=== PATIENT | male | born 1975 | race Caucasian/White ===

== ENCOUNTER 2017-03-10 06:16 | Inpatient (IN) | payer MEDICARE, OTHER ==
[~2017-03-10] VITALS: Ht 160 cm; Wt 93.0 kg
[2017-03-10] VITALS (24 sets, daily range): BP systolic 85–146; BP diastolic 65–114; PULSE 78–120; RESP 10–30; TEMP 97.1; Ht 160 cm; Wt 93.0 kg
[2017-03-10] MEDS ORDERED: SODIUM CHLORIDE 0.9% 1L BAG IV* STA (06:20)
[2017-03-10] MEDS ORDERED: NORepinephrine 8MG/250 ML (PMX 250 ML IV STA (06:20)
[2017-03-10] MEDS ORDERED: CEFEPIME 2GM/50 ML (PMX) 50 ML IVPB STA (06:20)
[2017-03-10] MEDS ORDERED: VANCOMYCIN 1 GM (PMX) 250 ML IVPB ONE (06:30)
--- NOTE | 2017-03-10 07:08 | ERD ---
ER Documentation Chief Complaint Chief Complaint Hypotension from [place] HPI This is a 41-year-old male with a history of spinal cord injury, paraplegia, chronic respiratory failure with recent trach who presents with hypotension. It appears that at [place] the patient became hypotensive and was in the 60s systolic. The patient had received 2 L of saline prior to arrival and still remained in the 70s. No reported fever but only temporal temperature checked. No reported melena or hemoptysis. No significant shortness of breath, the patient is ventilator dependent. He is slightly more confused per nursing staff today. The patient is nonverbal upon arrival therefore remainder of HPI is very limited. ROS Nonverbal, critically ill Medications Home Meds Reported Medications Trazodone Hcl* (Trazodone Hcl*) 50 Mg Tablet, 50 MG PO QHS, #30 TAB 03/10/17 Lorazepam* (Lorazepam*) 0.5 Mg Tablet, 0.5 MG PO HS Y for ANXIETY, TAB 03/10/17 Midodrine* (Midodrine*) 5 Mg Tablet, 5 MG PO DAILY, TAB 03/10/17 Pravastatin Sodium* (Pravastatin Sodium*) 10 Mg Tablet, 10 MG PO HS, TAB 03/10/17 Ranitidine Hcl* (Ranitidine Hcl*) 150 Mg Tablet, 150 MG PO HS, #30 TAB 03/10/17 Escitalopram Oxalate* (Lexapro*) 5 Mg Tablet, 5 MG PO DAILY, #30 TAB 03/10/17 Aspirin* (Aspirin* Chew) 81 Mg Tab.chew, 81 MG PO DAILY, TAB.CHEW 03/10/17 Baclofen* (Baclofen*) 10 Mg Tablet, 10 MG PO TID, TAB 03/10/17 Gabapentin* (Gabapentin*) 300 Mg Capsule, 300 MG PO TID, #90 CAP 03/10/17 Allergies Allergies: Coded Allergies: No Known Allergy (Unverified , 03/04/17) PMhx/Soc As noted in HPI FmHx Family History: No diabetes Physical Exam Vitals Vital Signs Date Time Temp Pulse Resp B/P Pulse Ox O2 Delivery O2 Flow Rate FiO2 03/10/17 10:30 95.8 97 18 98/74 100 Mechanical Ventilator 03/10/17 10:15 95.8 96 16 112/52 100 Mechanical Ventilator 03/10/17 10:00 96.1 94 18 114/89 100 Mechanical Ventilator 03/10/17 09:45 96.0 93 16 107/95 94 Mechanical Ventilator 03/10/17 09:30 96.0 92 18 130/93 90 Mechanical Ventilator 03/10/17 09:15 95.7 98 14 128/82 100 Mechanical Ventilator 03/10/17 09:15 99 21 100 75 03/10/17 09:00 95.1 97 16 101/60 100 Mechanical Ventilator 03/10/17 08:45 95.1 95 14 118/74 100 Mechanical Ventilator 03/10/17 08:30 94.5 95 12 121/77 100 Mechanical Ventilator 03/10/17 08:15 94.5 96 14 85/62 100 Mechanical Ventilator 03/10/17 08:00 94.5 93 14 77/60 100 Mechanical Ventilator 03/10/17 07:45 94.5 92 18 114/91 100 Mechanical Ventilator 03/10/17 07:30 94.3 82 16 78/47 100 Mechanical Ventilator 03/10/17 07:15 98 21 100 40 03/10/17 07:00 94.3 66 14 81/61 100 Mechanical Ventilator 03/10/17 06:45 94.3 85 18 76/46 100 Mechanical Ventilator 03/10/17 06:27 71 16 82/51 100 03/10/17 06:20 71 10 100 40 Physical Exam General: No significant distress Head: Normocephalic, atraumatic. Eyes: Pupils equally reactive, EOM intact ENT: Moist mucous membranes Neck: Supple, no lymphadenopathy tracheostomy in good position Respiratory: Rhonchi bilaterally, ventilator sounds Cardiovascular: RRR, no murmurs, rubs, or gallops Abdominal: Soft, non-tender, non-distended, no peritoneal signs, G-tube in position : No melena MSK: Limited movement of all 4 extremities, no bony abnormalities Neurologic: Limited exam, and encephalopathic, limited movement of all 4 extremities Skin: No rash, no significant breakdown Psych: Unable to assess Result Diagram: 03/10/1750 03/10/17 0650 Results 24 hrs Laboratory Tests Test 03/10/17 06:50 03/10/17 09:00 White Blood Count 15.310^3/ul Red Blood Count 3.4310^6/ul Hemoglobin 9.4g/dl Hematocrit 30.6% Mean Corpuscular Volume 89.2fl Mean Corpuscular Hemoglobin 27.4pg Mean Corpuscular Hemoglobin Concent 30.7g/dl Red Cell Distribution Width 15.1% Platelet Count 83426^3/UL Mean Platelet Volume 9.9fl Neutrophils % 78.9% Lymphocytes % 12.0% Monocytes % 7.0% Eosinophils % 0.4% Basophils % 0.3% Nucleated Red Blood Cells % 0.0/100WBC Neutrophils # 12.110^3/ul Lymphocytes # 1.810^3/ul Monocytes # 1.110^3/ul Eosinophils # 0.110^3/ul Basophils # 0.010^3/ul Nucleated Red Blood Cells # 0.010^3/ul Prothrombin Time 21.4Sec Prothrombin Time Ratio 1.7 INR International Normalized Ratio 1.84 Activated Partial Thromboplast Time 49.8Sec Urine Color YELLOW Urine Clarity CLOUDY Urine pH 5.0 Urine Specific Bass[place] 1.005 Urine Ketones NEGATIVEmg/dL Urine Nitrite NEGATIVEmg/dL Urine Bilirubin NEGATIVEmg/dL Urine Urobilinogen NEGATIVEmg/dL Urine Leukocyte Esterase 2+Roxanna/ul Urine Microscopic RBC 14/HPF Urine Microscopic WBC 62/HPF Urine Granular Casts FEW/HPF Urine Mucus FEW/HPF Urine Hemoglobin 3+mg/dL Urine Glucose NEGATIVEmg/dL Urine Total Protein 1+mg/dl Sodium Level 147mmol/L Potassium Level 4.0mmol/L Chloride Level 121mmol/L Carbon Dioxide Level 19mmol/L Anion Gap 11 Blood Urea Nitrogen 14mg/dl Creatinine 1.13mg/dl Glucose Level 92mg/dl Lactic Acid Level 0.7mmol/L 0.8mmol/L Calcium Level 7.8mg/dl Total Bilirubin 0.2mg/dl Direct Bilirubin 0.00mg/dl Indirect Bilirubin 0.2mg/dl Aspartate Amino Transf (AST/SGOT) 13IU/L Alanine Aminotransferase (ALT/SGPT) 24IU/L Alkaline Phosphatase 142IU/L Troponin I < 0.012ng/ml Total Protein 5.7g/dl Albumin 2.3g/dl Globulin 3.40g/dl Albumin/Globulin Ratio 0.67 Current Medications Medications (Trade) Dose Ordered Sig/Sera Route PRN Reason Start Time Stop Time Status Last Admin Dose Admin Sodium Chloride 2900 ml 2,900 ml BOLUS OVER 2 HOURS STAT IV* 03/10/17 06:20 03/10/17 06:23 DC 03/10/17 07:15 Norepinephrine 250 ml @ 7.5 mls/hr ONCE STAT IV 03/10/17 06:20 03/11/17 15:39 03/10/17 07:32 Cefepime HCl 50 ml @ 100 mls/hr ONCE STAT IVPB 03/10/17 06:20 03/10/17 06:49 DC 03/10/17 07:33 Vancomycin HCl (Vancocin) 250 ml @ 125 mls/hr ONCE ONCE IVPB 03/10/17 06:30 03/10/17 08:29 DC 03/10/17 08:08 Vancomycin HCl (Vancomycin Oral Syringe) 250 mg ONCE ONCE GTB 03/10/17 09:00 03/10/17 09:01 DC IV Flush 10 ml 10 ml STK-MED ONCE .ROUTE 03/10/17 09:39 03/10/17 09:40 DC Sodium Chloride (NS) 100 ml @ ud STK-MED ONCE .ROUTE 03/10/17 09:39 03/10/17 09:40 DC Iodixanol (Visipaque Locm) 100 ml STK-MED ONCE .ROUTE 03/10/17 09:39 03/10/17 09:40 DC Iodixanol (Visipaque Locm) 50 ml STK-MED ONCE .ROUTE 03/10/17 09:39 03/10/17 09:40 DC IV Flush (NS 3 ml) 3 ml PER PROTOCOL IV 03/10/17 11:30 UNV Ondansetron HCl (Zofran Inj) 4 mg Q6H PRN IV NAUSEA AND/OR VOMITING 03/10/17 11:30 UNV Albuterol (Proventil 0.083% (Neb)) 2.5 mg Q2H RESP THERAPY PRN NEB SHORTNESS OF BREATH 03/10/17 11:30 UNV Ipratropium [place] (Atrovent 0.02% (Neb)) 0.5 mg Q2H RESP THERAPY PRN NEB SHORTNESS OF BREATH 03/10/17 11:30 UNV Acetaminophen (Tylenol Liquid) 650 mg Q6H PRN PO PAIN LEVEL 1-3 OR FEVER 03/10/17 11:30 UNV Morphine Sulfate (morphine) 2 mg Q4H PRN IV PAIN LEVEL 7-10 03/10/17 11:30 UNV Famotidine (Pepcid Iv) 20 mg Q12 IV 03/10/17 21:00 UNV Procedures/MDM EKG, MONITORS, & DIAGNOSTIC IMAGING: EKG: I reviewed and interpreted a 12-lead EKG. Rhythm: Normal sinus rhythm Ectopy: None Intervals: No abnormalities ST segments: No elevations or depressions T waves: No contiguous inversions Chest x-ray: I reviewed and interpreted a 1 view of the chest Mediastinum: No enlargement Cardiac silhouette: No cardiomegaly Airspace: Interstitial process bilaterally, no pneumothorax Triple-lumen catheter in good position within the SVC Bones: No evidence of fracture CT PA: IMPRESSION: There are emboli in peripheral branches of the pulmonary artery to the left lower lobe. There is consolidation with air bronchograms involving nearly the entire left lung which is likely due to an infiltrate/pneumonia given its diffuse involvement of the left lung although pulmonary infarction in the left lower lobe cannot be excluded given the presence of adjacent PE. Tracheostomy . Enteric tube in the stomach. Mild cardiomegaly with mild pulmonary vascular congestion. Right-sided pacemaker. These critical findings were discussed with Tan Cardenas over the phone on 03/10/2017 at 10:58 AM. RPTAT: EE CT A/p: IMPRESSION: 1. There is mild bilateral pelvocaliectasis and mild dilatation of the proximal ureters with no nephrolith or ureterolith identified. A Disla catheter is seen within a poorly distended bladder with a small amount of intraluminal are not with the bladder wall appearing mildly thickened. 2. An NG tube is 7 with the tip in the stomach. There is no evidence of bowel obstruction or inflammation. The vermiform appendix is not identified. 3. There is a trace amount of free intraperitoneal fluid seen in the paracolic gutters bilaterally but no free air is evident. There is a very small fat containing left inguinal hernia. 4. Mild hepatomegaly with no focal lesion. 5. Atelectasis and consolidation involving the left lower lobe. 6. Mild cardiomegaly with pacemaker artifact evident. PROCEDURES: Central Line Note: Consent: Unable to obtain given no family present, patient nonverbal, critically ill Indication: Critically ill patient requiring specialized vascular access for fluid or pressor management Location: Right IJ Procedure: Sterile procedure was observed throughout insertion of the central line. The insertion site was prepped with sterile solution. Ultrasound-guided identification of the vein was performed. Insertion of a needle into the vein was obtained with return of dark, nonpulsatile blood. The wire was then threaded through the needle without complication. The wire was then identified within the vein using ultrasound. A small skin incision was made, the needle was removed intact, dilation of the vein was performed and insertion of a triple lumen catheter was completed. The catheter was then sutured to the skin. All 3 ports tomas back and flushed without difficulty. A sterile dressing was applied. The patient tolerated the procedure well there were no complications. Emergency Bedside Ultrasound: The patient was verbally consented prior to procedure and understands the risks , benefits, and alternatives. The patient is agreeable to procedure and has given verbal consent. Indication: Central line Probe Type: Linear Findings: Dynamic ultrasound utilizing compressive technique with both linear and horizontal views, additional images showing wire within the venous system were obtained. The patient tolerated the procedure well and there were no complications. A post-line chest x-ray was ordered as indicated. LAB INTERPRETATION: Leukocytosis of 15.3, anemia slightly below baseline of 10-1/2, normal lactic acid, negative troponin MEDICAL DECISION MAKING: The patient presents from [facility] with hypotension despite fluid resuscitation. His hypotension has a very broad differential but given his chronic respiratory failure, this is most likely consistent with early sepsis. No signs or symptoms concerning for cardiogenic shock or GI bleed. Consider spinal process given his paraplegia. The patient has already been given 2 L of saline upon arrival. However, given that this is a new ER visit initiation of sepsis protocol was restarted in the emergency department. But because of this I believe earlier pressor intervention is necessary as the patient has shown that he is not responsive to fluids at this time. Based on ultrasound imaging during central line he still does appear volume down. I will simultaneously continue a 30 cc/kg bolus of saline in the emergency department but initiate levo given persistent hypotension and mean arterial pressure less than 65. Blood cultures will be taken and the patient will be given vancomycin and cefepime. No signs or symptoms concerning for meningitis that would warrant lumbar puncture. Abdomen is soft with low concern of acute intra-abdominal process or aortic process. ER COURSE: Upon arrival the patient was assessed and was identified to require pressor support. A triple-lumen catheter was placed as documented above. The patient will be continued on his ventilator support. Laboratory testing was initiated. The patient continued to be hypotensive despite pressor support and IV fluids. He had a transient episode of hypoxia. Given that the hemoglobin had dropped there was some concern for possible hemorrhage therefore CT of the abdomen and pelvis was ordered. No melena on exam. The patient also had a hypoxic event prompting CTA of the chest to rule out pulmonary embolism. Interestingly enough the patient CT of the chest shows evidence of significant left-sided pneumonia. There is a very small subsegmental pulmonary embolism. Based on the conversation with the radiologist this appears to be incidental in nature. He does not describe any significant findings of right heart strain, he feels that this is unlikely to the be the patient's inciting event. I agree given that the patient has no evidence of cardiac strain on diagnostic imaging, EKG, troponin I believe that this small pulmonary embolism is not clinically significant. Additionally, the patient already has evidence of borderline INR elevation and recently had a placement of a triple-lumen catheter. In my opinion at this point given the unclear significance of the pulmonary embolism and clear risks for anticoagulation I would like to avoid anticoagulation in the emergency room setting. Inpatient hospitalization may warrant different treatment if the patient clinically changes. I believe that the patient's persistent hypotension is consistent with septic shock given hypothermia and leukocytosis with clear pneumonia on CT imaging. Patient was found to be hypothermic and started on a bear hugger. I kept the patient and/or family informed of laboratory and diagnostic imaging results throughout the emergency room course. DISPOSITION PLAN: Intensive care unit CONSULTATION: Accepting care team and consultations: I discussed the current laboratory data, diagnostic imaging and emergency care provided. Admitting team: Dr. Bailey Admitting team indication: Insurance directed Sepsis Documentation: Patient's infectious symptoms have not stabilized and the patient is at risk of rapid decompensation. The patient will be admitted for careful hydration, antibiotic therapy, and infectious source control. SEVERE SEPSIS CRITERIA: Infectious source: Healthcare associated pneumonia End organ damage indicated by: Hypotension (SBP < 90 or >40 mmHG drop or MAP < 65) SEPSIS MANAGEMENT Time of recognition of severe sepsis/septic shock: Upon arrival 3 HOUR BUNDLE Blood cultures x 2 before broad-spectrum antibiotics: Yes 30 ml/kg NS bolus Completed Initial lactate less than 2 Repeat lactate less than 2 SEPTIC SHOCK ASSESSMENT: No lactic acid > 4.0 Yes persistent hypotension (SBP < 90 or 40 mmHg drop, MAP < 65) despite 30 mL/ kg IV fluid bolus VOLUME REASSESSMENT FOR SEPTIC SHOCK: Reevaluation Time: 11:35 AM Temperature of 95.8 heart rate of 97 respiratory rate 18 blood pressure 98/74 pulse ox 100% on ventilator Heart Regular rate & rhythm Lungs rhonchi bilaterally Skin Warm & dry Cap Refill Less than 2 seconds Peripheral pulses Radially present PERSISTENT HYPOTENSION TREATMENT: Comfort care No Central line placed Vasopressor started levo I considered further perfusion assessment with CVP measurement, SCVO2, bedside ultrasound volume assessment, passive leg raise, trial of further fluid bolus. And proceeded with 30 ml/kg fluid bolus of NSS, broad spectrum antbiotics, and admission. CRITICAL CARE Critical care time 52 minutes Emergent fluid management while maintaining close respiratory support. Provision of immediate and broad-spectrum antibiotic therapy. Simultaneous assessment for possible sources in order to direct targeted therapy. Consideration for invasive and chemical support to prevent cardiopulmonary collapse. Critical care time is independent of procedures performed. Departure Diagnosis: Primary Impression: Hypotension Hypotension type: unspecified hypotension type Qualified Code: I95.9 - Hypotension, unspecified hypotension type Additional Impressions: Paraplegia Chronic respiratory failure Respiratory failure complication: unspecified whether with hypoxia or hypercapnia Qualified Code: J96.10 - Chronic respiratory failure, unspecified whether with hypoxia or hypercapnia Healthcare-associated pneumonia Pulmonary embolism Pulmonary embolism type: other Chronicity: unspecified Acute cor pulmonale presence: without acute cor pulmonale Qualified Code: I26.99 - Other pulmonary embolism without acute cor pulmonale, unspecified chronicity Septic shock Hypothermia Encounter type: initial encounter Qualified Code: T68.XXXA - Hypothermia, initial encounter Anemia Anemia type: unspecified type Qualified Code: D64.9 - Anemia, unspecified type Condition: Critical TAN GOOD MD Mar 10, 2017 07:08
--- NOTE | 2017-03-10 07:13 | RADRPT ---
PROCEDURE: Chest. CLINICAL INDICATION: Chest pain. TECHNIQUE: Single frontal view of the chest was obtained. COMPARISON: 03/05/2017. FINDINGS: There is a right IJ central venous catheter extending to the SVC. There is a nasogastric tube extend ing to the stomach. The patient is status post tracheostomy. There is a right-sided pacemaker. The c ardiac silhouette is magnified. The aortic arch is unremarkable. There is no focal consolidation, vascular congestion or pleural effusion. There is mild bibasilar atelectasis. There is no pneumothor ax. IMPRESSION: Mild bibasilar atelectasis. Tubes and line in place. .Tray Restrepo MD, Date Time Electronically viewed and signed by .Tray Restrepo MD, on 03/10/2017 07:12 .T/
[2017-03-10 07:30] LABS: BASOPHILS % 0.3 % (0.0-2.0); EOSINOPHILS # 0.1 10^3/ul (0.0-0.5); EOSINOPHILS % 0.4 % (0.0-7.0); HEMATOCRIT 30.6 % (42.0-52.0); HEMOGLOBIN 9.4 g/dl (14.0-18.0); LYMPHOCYTES # 1.8 10^3/ul (0.8-2.9); MEAN CORPUSCULAR HEMOGLOBIN 27.4 pg (29.0-33.0); MEAN CORPUSCULAR HGB CONC 30.7 g/dl (32.0-37.0); MEAN CORPUSCULAR VOLUME 89.2 fl (82.0-101.0); MEAN PLATELET VOLUME 9.9 fl (7.4-10.4); MONOCYTE # 1.1 10^3/ul (0.3-0.9); NEUTROPHIL # 12.1 10^3/ul (1.6-7.5); NEUTROPHILS % 78.9 % (39.0-77.0); PLATELET COUNT 303 10^3/UL (140-415); RED BLOOD COUNT 3.43 10^6/ul (4.70-6.10); RED CELL DISTRIBUTION WIDTH 15.1 % (11.5-14.5); WHITE BLOOD COUNT 15.3 10^3/ul (4.8-10.8)
[2017-03-10 07:37] LABS: ADD UMIC YES; ALANINE AMINOTRANSFERASE 24 IU/L (13-69); ALBUMIN 2.3 g/dl (3.3-4.9); ALBUMIN/GLOBULIN RATIO 0.67; ALKALINE PHOSPHATASE 142 IU/L (42-121); ANION GAP 11 (8-16); ASPARTATE AMINO TRANSFERASE 13 IU/L (15-46); BILIRUBIN,INDIRECT 0.2 mg/dl (0-1.1); BILIRUBIN,TOTAL 0.2 mg/dl (0.2-1.3); BLOOD UREA NITROGEN 14 mg/dl (7-20); CALCIUM 7.8 mg/dl (8.4-10.2); CARBON DIOXIDE 19 mmol/L (21-31); CHLORIDE 121 mmol/L (97-110); CREATININE 1.13 mg/dl (0.61-1.24); GLUCOSE 92 mg/dl (70-220); INR 1.84; PROTIME 21.4 Sec (12.2-14.2); PT RATIO 1.7; TOTAL PROTEIN 5.7 g/dl (6.1-8.1); UR ASCORBIC ACID NEGATIVE (NEGATIVE); UR BILIRUBIN (Dip) NEGATIVE (NEGATIVE); UR BLOOD (Dip) 3+ mg/dL (NEGATIVE); UR CLARITY CLOUDY (CLEAR); UR COLOR YELLOW (YELLOW); UR GLUCOSE (Dip) NEGATIVE (NEGATIVE); UR KETONES (Dip) NEGATIVE (NEGATIVE); UR LEUKOCYTE ESTERASE (Dip) 2+ Leu/ul (NEGATIVE); UR MUCUS FEW /HPF (NONE SEEN); UR NITRITE (Dip) NEGATIVE (NEGATIVE); UR RBC 14 /HPF (0-5); UR SPECIFIC GRAVITY (Dip) 1.005 (1.003-1.030); UR TOTAL PROTEIN (Dip) 1+ mg/dl (NEGATIVE); UR UROBILINOGEN (Dip) NEGATIVE (NEGATIVE)
[2017-03-10 07:38] LABS: PARTIAL THROMBOPLASTIN TIME 49.8 Sec (25.0-35.0)
[2017-03-10 08:18] LABS: SODIUM 147 mmol/L (135-144); TROPONIN-I < 0.012 ng/ml (0.00-0.12)
[2017-03-10] MEDS ORDERED: GABA300C16 PO (08:56)
[2017-03-10] MEDS ORDERED: BACL10TA PO (08:56)
[2017-03-10] MEDS ORDERED: ESCI5TAB PO (08:57)
[2017-03-10] MEDS ORDERED: RANI150T5 PO (08:57)
[2017-03-10] MEDS ORDERED: ASPI81TA3 PO (08:57)
[2017-03-10] MEDS ORDERED: PRAV10TA43 PO (08:58)
[2017-03-10] MEDS ORDERED: MIDO5TAB19 PO (08:58)
[2017-03-10] MEDS ORDERED: LORA0.5T PO (08:59)
[2017-03-10] MEDS ORDERED: TRAZ50TA18 PO (08:59)
[2017-03-10] MEDS ORDERED: VANCOMYCIN HCL 250 MG/5ML POSYG GTB ONE (09:00)
[2017-03-10] MEDS ORDERED: SOD CHLORIDE 0.9% 100 ML ONE (09:39)
[2017-03-10] MEDS ORDERED: IODIXANOL LOCM 50 ML BTL ONE (09:39)
[2017-03-10] MEDS ORDERED: IODIXANOL LOCM 100 ML BTL ONE (09:39)
--- NOTE | 2017-03-10 10:58 | RADRPT ---
PROCEDURE: CTA Chest with contrast and with 3-D reconstructions CLINICAL INDICATION: Pulmonary emboli TECHNIQUE: The study was performed utilizing multidetector CT scanner. Direct spiral axial section s were obtained from the thoracic inlet to the upper abdomen with the use of intravenous contrast ma terial (125 cc of Visipaque 320). Sagittal, coronal and 3-D reformations were obtained. The images w ere reviewed on a PACS workstation. DLP 1923.18 mGycm CTDIvol 7.04, 49.29, 19.74, 16.22 mGy One or more of the following dose reduction techniques were used: - Automated exposure control. - Adjustment of the mA and/or kV according to patient size. - Use of iterative reconstruction technique. COMPARISON: No prior studies are available for comparison. FINDINGS: There are emboli in peripheral branches of the pulmonary artery to the left lower lobe (series 3, im age 89). A tracheostomy is noted with its tip above the aysha. There is mild pulmonary vascular congestion. There is a consolidation with air bronchograms involving nearly the entire left lung with only a sma ll portion of the lingula and superior aspect of the left upper lobe still aerated. There is no pleu ral fluid. There is no pneumothorax. A right-sided pacemaker is noted. There is mild cardiomegaly. There is no pericardial fluid. The ao rta is within normal limits. There are no enlarged axillary or mediastinal lymph nodes. A dystrophi c left hilar calcification is noted which is likely the sequela of prior granulomatous disease. The tip of an enteric tube is noted in the stomach. There is bilateral gynecomastia. IMPRESSION: There are emboli in peripheral branches of the pulmonary artery to the left lower lobe. There is con solidation with air bronchograms involving nearly the entire left lung which is likely due to an inf iltrate/pneumonia given its diffuse involvement of the left lung although pulmonary infarction in th e left lower lobe cannot be excluded given the presence of adjacent PE. Tracheostomy . Enteric tube in the stomach. Mild cardiomegaly with mild pulmonary vascular congestion. Right-sided pacemaker. These critical findings were discussed with Tan Cardenas over the phone on 03/10/2017 at 10 :58 AM. RPTAT: EE Arnaldo Faust Physician Date Time Electronically viewed and signed by Arnaldo Faust Physician on 03/10/2017 10:58 RA/
--- NOTE | 2017-03-10 11:11 | RADRPT ---
PROCEDURE: CT Abdomen and Pelvis with Contrast CLINICAL INDICATION: Shock pain, anemia TECHNIQUE: Transaxial images were obtained through the abdomen and pelvis on a multi-slice scanner following the intravenous administration of 125 ml of Visipaque 320 contrast. No oral contrast had previously been given. Sagittal and coronal re-formations were subsequently reconstructed. One or more of the following dose reduction techniques were used: - Automated exposure control. - Adjustment of the mA and/or kV according to patient size. - Use of iterative reconstruction technique. Radiation dose: CTDIvol = 16.22 mGy; DLP = 1001 air 53.07 mGy-cm. COMPARISON: No prior studies are available for comparison. FINDINGS: Lung bases: There is atelectasis and consolidation involving the left lower lobe. The heart is enlar ged and pacemaker or artifact is evident. Liver: The liver is mildly enlarged with no focal lesion identified. Gallbladder: The wall is not thickened. No radiopaque stones are identified. Bile ducts: The intra and extrahepatic bile ducts are normal in caliber. Pancreas: The pancreas appears unremarkable. Spleen: Normal in size with no focal lesion. Adrenals: Normal with no mass identified. Kidneys, ureters and bladder: There is mild bilateral pelvocaliectasis and there is mild dilatation of the proximal ureters. No ureterolith is identified. A Disla catheter is seen within a poorly dist ended bladder along with a small amount of intraluminal air. The bladder wall appears mildly thicken ed.. Reproductive organs: Unremarkable. Stomach, bowel, and mesentery: An NG tube is evident with the tip in the stomach. The stomach and george wel appear unremarkable without evidence of bowel obstruction or inflammation. Appendix: The vermiform appendix is not discretely identified. Peritoneum: There is a trace of free fluid within the pericolic gutters bilaterally but no free air is identified. There is a small fat containing left inguinal hernia. Aorta: Normal in caliber with no aneurysmal dilatation. IVC: Unremarkable. Lymph nodes: No pathologically enlarged nodes are identified. Osseous structures: Mild anterior spurring is seen to the inferior thoracic spine. IMPRESSION: 1. There is mild bilateral pelvocaliectasis and mild dilatation of the proximal ureters with no nep hrolith or ureterolith identified. A Disla catheter is seen within a poorly distended bladder with a small amount of intraluminal are not with the bladder wall appearing mildly thickened. 2. An NG tube is 7 with the tip in the stomach. There is no evidence of bowel obstruction or inflam mation. The vermiform appendix is not identified. 3. There is a trace amount of free intraperitoneal fluid seen in the paracolic gutters bilaterally but no free air is evident. There is a very small fat containing left inguinal hernia. 4. Mild hepatomegaly with no focal lesion. 5. Atelectasis and consolidation involving the left lower lobe. 6. Mild cardiomegaly with pacemaker artifact evident. Physician Pako Date Time Electronically viewed and signed by Madisyn Whitt Physician on 03/10/2017 11:10 RH/
[2017-03-10] MEDS ORDERED: ALBUTEROL 0.083% (NEB) 2.5 MG/3 ML AMP NEB PRN (11:30)
[2017-03-10] MEDS ORDERED: ONDANSETRON 4 MG INJ IV PRN (11:30)
[2017-03-10] MEDS ORDERED: IPRATROPIUM (NEB) 0.5 MG/2.5 ML AMP NEB PRN (11:30)
[2017-03-10] MEDS ORDERED: NACL 0.9% 3 ML SYG IV SCH (11:30)
[2017-03-10 11:54] LABS: BASOPHIL # 0.1 10^3/ul (0.0-0.1); BASOPHILS % 0.4 % (0.0-2.0); EOSINOPHILS # 0.1 10^3/ul (0.0-0.5); EOSINOPHILS % 0.3 % (0.0-7.0); HEMOGLOBIN 10.4 g/dl (14.0-18.0); LYMPHOCYTES # 1.5 10^3/ul (0.8-2.9); LYMPHOCYTES % 9.3 % (15.0-51.0); MEAN CORPUSCULAR HEMOGLOBIN 29.1 pg (29.0-33.0); MEAN CORPUSCULAR HGB CONC 32.5 g/dl (32.0-37.0); MEAN CORPUSCULAR VOLUME 89.4 fl (82.0-101.0); MEAN PLATELET VOLUME 9.6 fl (7.4-10.4); MONOCYTE # 0.9 10^3/ul (0.3-0.9); MONOCYTES % 5.9 % (0.0-11.0); NEUTROPHIL # 12.9 10^3/ul (1.6-7.5); NEUTROPHILS % 82.4 % (39.0-77.0); PLATELET COUNT 316 10^3/UL (140-415); RED BLOOD COUNT 3.58 10^6/ul (4.70-6.10); RED CELL DISTRIBUTION WIDTH 14.9 % (11.5-14.5); WHITE BLOOD COUNT 15.7 10^3/ul (4.8-10.8)
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
[2017-03-10 12:17] LABS: CALCIUM 7.7 mg/dl (8.4-10.2); CREATININE 1.02 mg/dl (0.61-1.24); MAGNESIUM 1.4 mg/dl (1.7-2.5); PHOSPHORUS 3.4 mg/dl (2.5-4.9)
--- NOTE | 2017-03-10 15:27 | CONS ---
Date/Time of Note Date/Time of Note DATE: 03/10/17 TIME: 15:23 Assessment/Plan Assessment/Plan Chief Complaint/Hosp Course 1. Septic shock ; ddx: cdiff, pna, uti, vs. bsi, 2. quardraplegia 3. recent pna completing course of vanco/cefepime 4. vent/trach/gtube dependence 5. constipation--> Diarrhea R: black cx lactic acid procalc vanco iv and po meropenem caspofungin iv flagyl will follow closely with you in the icu Problems: Consultation Date/Type/Reason Admit Date/Time Date of Consultation: Mar 10, 2017 Reason for Consultation abx recs Referring Provider: MELINDA BASS MD Hx of Present Illness Mr. Al is a very unfortunate 41 yo male with of quardraplegia, [facility], trach/vent dependent, gtube dependence, recently at [place] for weaning who has decompensated with Septic Shock. Source unclear currently and w/u in progress. He apparently began having loose stool yesterday nite and hypotension. He was also becoming progressively altered. patient unable to provide Social History Smoking Status: Unknown if ever smoked Exam/Review of Systems Vital Signs Vitals Vital Signs Date Time Temp Pulse Resp B/P Pulse Ox O2 Delivery O2 Flow Rate FiO2 03/10/17 15:00 97.1 98 18 91/68 100 Mechanical Ventilator 03/10/17 09:15 75 Exam Constitutional: alert, distress, frail, obese, well developed Psych: nl mood/affect, no complaints Head: atraumatic, normocephalic Eyes: EOMI, PERRL, nl conjunctiva, nl lids, nl sclera ENMT: nl external ears & nose, nl lips & teeth, nl nasal mucosa & septum Respiratory: clear to auscultation, normal air movement Cardiovascular: nl pulses, regular rate and rhythm Gastrointestinal: nl liver, spleen, non-tender, soft Neurological: CONSULAR OFFICER II-XII intact, nl mental status, nl speech, nl strength Results Result Diagram: 03/10/17 1146 03/10/17 1146 Results 24 hrs Laboratory Tests Test 03/10/17 06:50 03/10/17 09:00 03/10/17 11:46 White Blood Count 15.3 H 15.7 H Red Blood Count 3.43 L 3.58 L Hemoglobin 9.4 L 10.4 L Hematocrit 30.6 L 32.0 L Mean Corpuscular Volume 89.2 89.4 Mean Corpuscular Hemoglobin 27.4 L 29.1 Mean Corpuscular Hemoglobin Concent 30.7 L 32.5 Red Cell Distribution Width 15.1 H 14.9 H Platelet Count 303 316 Mean Platelet Volume 9.9 9.6 Neutrophils % 78.9 H 82.4 H Lymphocytes % 12.0 L 9.3 L Monocytes % 7.0 5.9 Eosinophils % 0.4 0.3 Basophils % 0.3 0.4 Nucleated Red Blood Cells % 0.0 0.0 Neutrophils # 12.1 H 12.9 H Lymphocytes # 1.8 1.5 Monocytes # 1.1 H 0.9 Eosinophils # 0.1 0.1 Basophils # 0.0 0.1 Nucleated Red Blood Cells # 0.0 0.0 Prothrombin Time 21.4 #H Prothrombin Time Ratio 1.7 INR International Normalized Ratio 1.84 Activated Partial Thromboplast Time 49.8 H Urine Color YELLOW Urine Clarity CLOUDY A Urine pH 5.0 Urine Specific [place] 1.005 Urine Ketones NEGATIVE Urine Nitrite NEGATIVE Urine Bilirubin NEGATIVE Urine Urobilinogen NEGATIVE Urine Leukocyte Esterase 2+ H Urine Microscopic RBC 14 H Urine Microscopic WBC 62 H Urine Granular Casts FEW A Urine Mucus FEW A Urine Hemoglobin 3+ H Urine Glucose NEGATIVE Urine Total Protein 1+ H Sodium Level 147 H 148 H Potassium Level 4.0 4.0 Chloride Level 121 H 124 H Carbon Dioxide Level 19 L 16 L Anion Gap 11 12 Blood Urea Nitrogen 14 13 Creatinine 1.13 1.02 Glucose Level 92 # 93 Lactic Acid Level 0.7 0.8 0.5 Calcium Level 7.8 L 7.7 L Total Bilirubin 0.2 Direct Bilirubin 0.00 Indirect Bilirubin 0.2 Aspartate Amino Transf (AST/SGOT) 13 L Alanine Aminotransferase (ALT/SGPT) 24 Alkaline Phosphatase 142 H Troponin I < 0.012 Total Protein 5.7 L Albumin 2.3 L Globulin 3.40 H Albumin/Globulin Ratio 0.67 Phosphorus Level 3.4 Magnesium Level 1.4 L Medications Medications Current Medications Ondansetron HCl (Zofran Inj) 4 mg Q6H PRN IV NAUSEA AND/OR VOMITING; Start 03/10/17 at 11:30 Acetaminophen (Tylenol Liquid) 650 mg Q6H PRN PO PAIN LEVEL 1-3 OR FEVER; Start 03/10/17 at 11:30 Morphine Sulfate (morphine) 2 mg Q4H PRN IV PAIN LEVEL 7-10; Start 03/10/17 at 11:30 Famotidine (Pepcid Iv) 20 mg Q12 IV ; Start 03/10/17 at 21:00 ESTHER DRAPER MD Mar 10, 2017 15:27
[2017-03-10] MEDS ORDERED: VANCOMYCIN IV PER PHARMACY XX SCH (15:30)
[2017-03-10] MEDS: MEROPENEM 1 GM/50ML(PMX) 50 ML IVPB SCH ×2 (16:09→23:48)
[2017-03-10] MEDS ORDERED: CASPOFUNGIN 70 MG in SOD CHLORIDE 0.9% 250 ML IVPB ONE (17:00)
[2017-03-10 17:11] LABS: AADO2 Arterial 269.2 mmHg (7.0-24.0); Allen Test ACCEPTAB; Arterial Base Excess -11.5 mmol/L (-3.0-3); Arterial COHb 0.3 % (0.0-3.0); Arterial Fraction of Oxyhgb 85.2 % (93.0-99.0); Arterial HCO3 14.5 mmol/L (22.0-26.0); Arterial MetHb 0.3 % (0.0-1.5); Arterial Total Hemglobin 13.2 g/dl (12.0-18.0); MODE VENT - AC
--- NOTE | 2017-03-10 17:46 | RADRPT ---
PROCEDURE: US bilateral lower extremity veins. CLINICAL INDICATION: Bilateral leg pain and swelling. TECHNIQUE: Multiple longitudinal and transverse images of the bilateral lower extremity veins were obtained with hassan scale and color Doppler imaging. The common femoral vein, femoral vein, and popl iteal vein were evaluated. 2D grayscale measurements with compression sonography, color Doppler, and pulsed Doppler with augmentation. COMPARISON: No prior studies are available for comparison. FINDINGS: The bilateral common femoral, femoral and popliteal veins are normally compressible throughout. Col or flow demonstrates normal filling of the vessels. Normal waveforms are visualized and there is no rmal response to augmentation. IMPRESSION: 1. No evidence of deep vein thrombosis involving either lower extremity. RPTAT: QQ .Thomas Cary MD, MD Date Time Electronically viewed and signed by .Thomas Cary MD, on 03/10/2017 17:46 .R/
[2017-03-10] MEDS: VANCOMYCIN HCL 250 MG/5ML POSYG PO SCH ×2 (17:51→23:48)
[2017-03-10] MEDS ORDERED: INFLUENZA VIRUS VACCINE 0.5 ML (DISPENSING) IM* ONE (18:30)
[2017-03-10] MEDS ORDERED: SOD CHLORIDE 0.9% IV ONE (22:00)
[2017-03-10] MEDS ORDERED: MAGNESIUM SULFATE IV ONE (22:00)
--- NOTE | 2017-03-10 22:28 | RADRPT ---
PROCEDURE: CT Head without. CLINICAL INDICATION: Altered level of consciousness. TECHNIQUE: The study was performed utilizing a multi-slice, multidetector CT scanner. Direct spira l 1 mm axial sections were obtained through the head without the use of intravenous contrast materia l. 1 or more of the following dose reduction techniques were utilized: Automated exposure control, adjustment of the mA and/or kV according to patient's size, iterative reconstruction technique. Co ramona and sagittal reformations were obtained. The images were reviewed on a PACS workstation. RADIATION DOSE: CTDIvol: 43.5 mGyDLP: 888.3 mGy-cm COMPARISON: No prior studies are available for comparison. FINDINGS: There is no intracranial hemorrhage, extra-axial fluid collection, mass lesion, midline shift or hyd rocephalus. The ventricles, sulci and cisterns are within normal limits. The white matter is unrem arkable. The hassan-white matter differentiation is preserved. The basal cisterns are patent. The m idline structures are intact. The orbits, calvarium and extracranial soft tissues are normal in brenna earance. There is fluid opacification of the visualized portion of the left maxillary sinus. There i s a nasogastric tube in place. The remaining paranasal sinuses are normally aerated. There is fluid opacification of the bilateral mastoid air cells and middle ear cavities. There is no evidence of er osive changes. IMPRESSION: 1. No acute intracranial abnormality. No intracranial hemorrhage, extra-axial fluid collection, ma ss lesion or hydrocephalous. 2. Fluid opacification of the bilateral mastoid air cells and middle ear cavities, without evidence of erosive changes. This is most likely related to benign inflammatory changes of the mastoid air c ells. RPTAT: HGAS .Rupert Marcelo MD, MD Date Time Electronically viewed and signed by .Rupert Marcelo MD, MD on 03/10/2017 22:27 .S/
[2017-03-10] MEDS: FAMOTIDINE 20 MG INJ IV SCH (22:37)
[2017-03-10] MEDS: LEVETIRACETAM 500 MG (PMX) 100 ML IVPB SCH (22:37)
[2017-03-10] MEDS: HEPARIN 25000 UNITS/250 ML 250 ML IV SCH (23:44)
[2017-03-11] VITALS (55 sets, daily range): BP systolic 93–135; BP diastolic 54–100; PULSE 60–77; RESP 10–26
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
[2017-03-11 05:11] LABS: BASOPHIL # 0.1 10^3/ul (0.0-0.1); BASOPHILS % 0.4 % (0.0-2.0); EOSINOPHILS # 0.2 10^3/ul (0.0-0.5); EOSINOPHILS % 1.1 % (0.0-7.0); HEMATOCRIT 28.2 % (42.0-52.0); HEMOGLOBIN 8.9 g/dl (14.0-18.0); LYMPHOCYTES # 2.1 10^3/ul (0.8-2.9); LYMPHOCYTES % 14.9 % (15.0-51.0); MEAN CORPUSCULAR HEMOGLOBIN 28.1 pg (29.0-33.0); MEAN CORPUSCULAR HGB CONC 31.6 g/dl (32.0-37.0); MEAN PLATELET VOLUME 9.8 fl (7.4-10.4); MONOCYTES % 7.3 % (0.0-11.0); NEUTROPHIL # 10.3 10^3/ul (1.6-7.5); NEUTROPHILS % 74.9 % (39.0-77.0); PLATELET COUNT 305 10^3/UL (140-415); RED BLOOD COUNT 3.17 10^6/ul (4.70-6.10); RED CELL DISTRIBUTION WIDTH 15.3 % (11.5-14.5); WHITE BLOOD COUNT 13.8 10^3/ul (4.8-10.8)
[2017-03-11 05:42] LABS: ALBUMIN 2.2 g/dl (3.3-4.9); ALBUMIN/GLOBULIN RATIO 0.64; BILIRUBIN,INDIRECT 0.2 mg/dl (0-1.1); BILIRUBIN,TOTAL 0.2 mg/dl (0.2-1.3); CALCIUM 8.2 mg/dl (8.4-10.2); CREATININE 0.97 mg/dl (0.61-1.24); POTASSIUM 3.9 mmol/L (3.5-5.1); TOTAL PROTEIN 5.6 g/dl (6.1-8.1)
[2017-03-11] MEDS: MEROPENEM 1 GM/50ML(PMX) 50 ML IVPB SCH ×3 (06:08→22:12)
[2017-03-11] MEDS: morphine 2 MG INJ IV PRN (06:08)
--- NOTE | 2017-03-11 06:42 | RADRPT ---
PROCEDURE: XR Chest. CLINICAL INDICATION: Shortness of breath TECHNIQUE: AP Portable chest. COMPARISON: CT 03/10/2017; DR CHEST 03/10/2017 FINDINGS: Tracheostomy tube, NG tube, right central line are unchanged. There is right-sided dual lead pacemak er. There is left-sided volume loss with deviation of the heart to the left. Retrocardiac opacity is see n. The left hemidiaphragm and costophrenic angle are obscured. No pneumothorax is identified. There is artifact over the right chest and apparent ground-glass opacity.. The osseous structures are in tact. IMPRESSION: Lines and tubes unchanged. Increase left-sided volume loss, retrocardiac consolidation and/or atelectasis. Physician Aliyah Date Time Electronically viewed and signed by Physician Aliyah on 03/11/2017 06:41 CS/
[2017-03-11 07:56] LABS: AADO2 Arterial 442.8 mmHg (7.0-24.0); Allen Test ACCEPTAB; Arterial Base Excess -9.2 mmol/L (-3.0-3); Arterial COHb 0.2 % (0.0-3.0); Arterial Fraction of Oxyhgb 98.2 % (93.0-99.0); Arterial HCO3 15.4 mmol/L (22.0-26.0); Arterial MetHb 0.4 % (0.0-1.5); MODE VENT - AC
[2017-03-11] MEDS: VANCOMYCIN HCL 250 MG/5ML POSYG PO SCH ×2 (08:09→18:54)
[2017-03-11] MEDS: FAMOTIDINE 20 MG INJ IV SCH ×2 (08:10→20:41)
[2017-03-11] MEDS: LEVETIRACETAM 500 MG (PMX) 100 ML IVPB SCH ×2 (08:17→20:41)
[2017-03-11] MEDS: HEPARIN 25000 UNITS/250 ML 250 ML IV SCH ×2 (11:17→19:21)
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
--- NOTE | 2017-03-11 13:47 | PN ---
Date/Time of Note Date/Time of Note DATE: 03/11/17 TIME: 13:40 Assessment/Plan Lines/Catheters IV Catheter Type (from Nrsg): Central Line Urinary Cath still in place: Yes Assessment/Plan Assessment/Plan Hypotension- BP 114/63 Paraplegia Chronic respiratory failure - per pulmonary Healthcare-associated pneumonia Pulmonary embolism Septic shock - per ID Hypothermia Anemia - monitor CBC Plan of care jer Bailey Subjective 24 Hr Interval Summary Free Text/Dictation Levo OFF, on Heparin drip, afebrile, getting EEG today, dw staff Constitutional: requiring IVF, requiring O2 Exam/Review of Systems Vital Signs Vitals Vital Signs Date Time Temp Pulse Resp B/P Pulse Ox O2 Delivery O2 Flow Rate FiO2 03/11/17 11:50 59 15 100 60 03/11/17 08:00 97.5 114/63 Mechanical Ventilator Intake and Output 03/10/17 03/10/17 03/11/17 15:00 23:00 07:00 Intake Total 1300 ml 501.00 ml 349.5 ml Output Total 825 ml 615 ml 455 ml Balance 475 ml -114.00 ml -105.5 ml Exam Constitutional: alert Respiratory: diminished breath sounds, normal air movement Cardiovascular: nl pulses, other (s1s2) Gastrointestinal: non-tender, soft Extremities: other (paraplegic) Results Result Diagram: 03/11/17 0430 03/11/17 0430 Results 24 hrs Laboratory Tests Test 03/10/17 16:49 03/10/17 17:47 03/11/17 04:30 03/11/17 06:00 Blood Gas Specimen Source Blood arterial Arterial Blood Date Drawn 03/10/2017 4:58:20 PM Arterial Blood pH (Temp corrected) 7.253 *L Arterial Blood pCO2 (Temp correct) 33.7 L Arterial Blood pO2 (Temp corrected) 49.4 *L Arterial Blood HCO3 14.5 L Arterial Blood Base Excess -11.5 L Arterial Blood Oxygen Saturation 85.7 L Robert Test ACCEPTAB Arterial Blood Gas Puncture Site Left Radial Arterial Blood Carboxyhemoglobin 0.3 Arterial Blood Methemoglobin 0.3 Blood Gas A-a O2 Differential 269.2 H Oxyhemoglobin Percent 85.2 L Total Hemoglobin 13.2 Blood Gas Temperature 37.0 Blood Gas Respiration Rate 10.0 Blood Gas Actual Respiration Rate 20 Blood Gas Modality VENT - AC FiO2 50.0 Blood Gas Tidal Volume 550.0 Blood Gas Low PEEP Setting 5.0 Blood Gas Critical Value Read Back Delilah MENDOZA RN Blood Gas Notified Whom Tanvir Blood Gas Notified Time 03/10/2017 5:11:04 PM Lactic Acid Level 0.7 White Blood Count 13.8 H Red Blood Count 3.17 L Hemoglobin 8.9 L Hematocrit 28.2 L Mean Corpuscular Volume 89.0 Mean Corpuscular Hemoglobin 28.1 L Mean Corpuscular Hemoglobin Concent 31.6 L Red Cell Distribution Width 15.3 H Platelet Count 305 Mean Platelet Volume 9.8 Neutrophils % 74.9 Lymphocytes % 14.9 L Monocytes % 7.3 Eosinophils % 1.1 Basophils % 0.4 Nucleated Red Blood Cells % 0.0 Neutrophils # 10.3 H Lymphocytes # 2.1 Monocytes # 1.0 H Eosinophils # 0.2 Basophils # 0.1 Nucleated Red Blood Cells # 0.0 Sodium Level 149 H Potassium Level 3.9 Chloride Level 125 H Carbon Dioxide Level 18 L Anion Gap 10 Blood Urea Nitrogen 12 Creatinine 0.97 Glucose Level 82 Calcium Level 8.2 L Magnesium Level 2.0 Total Bilirubin 0.2 Direct Bilirubin 0.00 Indirect Bilirubin 0.2 Aspartate Amino Transf (AST/SGOT) 25 # Alanine Aminotransferase (ALT/SGPT) 29 Alkaline Phosphatase 145 H Total Protein 5.6 L Albumin 2.2 L Globulin 3.40 H Albumin/Globulin Ratio 0.64 Activated Partial Thromboplast Time > 180.0 *H Test 03/11/17 07:00 03/11/17 08:03 03/11/17 10:14 Blood Gas Specimen Source Blood arterial Arterial Blood Date Drawn 03/11/2017 7:20:28 AM Arterial Blood pH (Temp corrected) 7.339 L Arterial Blood pCO2 (Temp correct) 29.3 L Arterial Blood pO2 (Temp corrected) 240.9 H Arterial Blood HCO3 15.4 L Arterial Blood Base Excess -9.2 L Arterial Blood Oxygen Saturation 98.8 H Robert Test ACCEPTAB Arterial Blood Gas Puncture Site Left Radial Arterial Blood Carboxyhemoglobin 0.2 Arterial Blood Methemoglobin 0.4 Blood Gas A-a O2 Differential 442.8 H Oxyhemoglobin Percent 98.2 Total Hemoglobin 10.0 L Blood Gas Temperature 37.0 Blood Gas Respiration Rate 10.0 Blood Gas Actual Respiration Rate 17 Blood Gas Modality VENT - AC FiO2 100.0 Blood Gas Tidal Volume 550.0 Blood Gas Low PEEP Setting 5.0 Blood Gas Notified Whom JLD Blood Gas Notified Time 03/11/2017 7:56:26 AM Activated Partial Thromboplast Time > 180.0 *H 73.0 *H Medications Medications Current Medications Ondansetron HCl (Zofran Inj) 4 mg Q6H PRN IV NAUSEA AND/OR VOMITING; Start 03/10/17 at 11:30 Acetaminophen (Tylenol Liquid) 650 mg Q6H PRN PO PAIN LEVEL 1-3 OR FEVER; Start 03/10/17 at 11:30 Morphine Sulfate (morphine) 2 mg Q4H PRN IV PAIN LEVEL 7-10 Last administered on 03/11/17 06:08; Admin Dose 2 MG; Start 03/10/17 at 11:30 Famotidine 20 mg 20 mg Q12 IV Last administered on 03/11/17 08:10; Admin Dose 20 MG; Start 03/10/17 at 21:00 Caspofungin 50 mg/ Sodium Chloride 250 ml @ 250 mls/hr Q24H IVPB ; Start at 17:00 Meropenem/Sodium Chloride (Merrem 1 Gm/50 ml (Pmx)) 50 ml @ 100 mls/hr Q8 IVPB Last administered on 03/11/17 06:08; Admin Dose 100 MLS/HR; Start 03/10/17 at 16:00 Vancomycin HCl 250 mg 250 mg Q8H PO Last administered on 03/11/17 08:09; Admin Dose 250 MG; Start 03/10/17 at 16:00 Levetiracetam (Keppra 500 Mg/ 100ml (Pmx)) 100 ml @ 400 mls/hr Q12 IVPB Last administered on 03/11/17 08:17; Admin Dose 400 MLS/HR; Start 03/10/17 at 21:00 Lorazepam (Ativan) 0.5 mg Q4H PRN IV AGITATION/ SEIZURES; Start 03/10/17 at 21: 00 Influenza Virus Vaccine (Fluzone) 0.5 ml ONCE ONCE IM* ; Start 03/13/17 at 12:00 ; Stop 03/13/17 at 12:01 Miscellaneous Information VANCO RANDOM LEVEL... ONCE ONCE XX ; Start 03/12/17 at 05:00; Stop 03/12/17 at 05:01 Potassium Chloride/Dextrose (D5W + KCl 20 Meq) 1,000 ml @ 100 mls/hr Q10H IV ; Start 03/11/17 at 13:00 LISY MALCOLM Mar 11, 2017 13:47
[2017-03-11] MEDS: D5W + KCL 20 MEQ 1,000 ML IV SCH (13:48)
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
[2017-03-11] MEDS: CASPOFUNGIN 50 MG in SOD CHLORIDE 0.9% 250 ML IVPB SCH (18:54)
[2017-03-12] VITALS (33 sets, daily range): BP systolic 92–125; BP diastolic 52–78; PULSE 60–78; RESP 11–24
[2017-03-12] MEDS: VANCOMYCIN HCL 250 MG/5ML POSYG PO SCH ×3 (00:54→18:44)
[2017-03-12] MEDS: D5W + KCL 20 MEQ 1,000 ML IV SCH ×3 (00:55→19:29)
--- NOTE | 2017-03-12 05:32 | PN ---
DATE: 03/11/2017 LOCATION: ICU. SUBJECTIVE/INTERVAL HISTORY: Patient continues to remain hypertensive and is requiring Levophed. The patient's mental status has improved. CT of the head was negative for any acute intracranial abnormality. Therefore, the patient was started on IV heparin for acute pulmonary embolism. Patient is more awake and responsive, although occasionally has hallucination as per his . The patient also has twitching in his shoulders yesterday for which patient was started on Keppra and EEG has been ordered. A neuro evaluation is pending. Patient is breathing comfortably on vent, FIO2 down to 60%. The patient is saturating 98% to 99%. No bleeding from any site. No temperature spike today. PHYSICAL EXAMINATION: GENERAL: Patient to be conscious, awake, alert, follows simple commands VITAL SIGNS: Temperature 97.5, pulse 59, respirations 15, O2 saturation 100% on FIO2 60%, blood pressure 114/63. HEENT: Conjunctivae and lids normal. Extraocular movements intact. No nystagmus. Nose and ears normal externally. NECK: Tracheostomy in place, mild secretions. CHEST: Decreased breath sounds on the left side. CARDIOVASCULAR: S1, S2 normal. No murmur. ABDOMEN: Soft, nondistended, nontender. EXTREMITIES: Patient is quadriplegic, no clubbing, cyanosis. NEUROLOGIC: The patient is awake, alert, follows simple commands. Has dense quadriplegic. LABORATORY DATA: WBC 13.8, hemoglobin 8.9, platelet 305. Sodium 149, potassium 3.9, BUN 12, creatinine 0.9, AST 25, ALT 29, albumin 2.2. IMPRESSION: 1. Acute hypoxemic respiratory failure. Continue vent support. The patient is being seen by Dr.Qarni londono. 2. Healthcare facility acquired pneumonia. Continue IV vancomycin, meropenem. 3. Funguria, the patient has been started on caspofungin 4. Questionable focal seizures, continue Keppra. EEG pending. 5. Acute pulmonary embolism. Continue IV heparin 6. Status post septic shock. Continue IV fluids and vasopressor. Patient remains critically ill. Plan of care discussed with the patient's , Sugar. Case was also discussed with Dr. Isidoro Lopez from nephrology standpoint for management of hypernatremia. The patient did receive magnesium sulfate yesterday for magnesium of 1.4 and this morning, magnesium level is 2. Total critical care time spent approx 35 mins Dictated By: MELINDA TORRES/FABIENNE Conf#: [id number] DID#: [id number] MTDD
[2017-03-12] MEDS: MEROPENEM 1 GM/50ML(PMX) 50 ML IVPB SCH ×3 (05:42→21:56)
[2017-03-12 07:04] LABS: BASOPHILS % 0.3 % (0.0-2.0); EOSINOPHILS # 0.2 10^3/ul (0.0-0.5); EOSINOPHILS % 2.5 % (0.0-7.0); HEMATOCRIT 26.5 % (42.0-52.0); HEMOGLOBIN 8.5 g/dl (14.0-18.0); LYMPHOCYTES # 0.8 10^3/ul (0.8-2.9); LYMPHOCYTES % 9.6 % (15.0-51.0); MEAN CORPUSCULAR HEMOGLOBIN 28.2 pg (29.0-33.0); MEAN CORPUSCULAR HGB CONC 32.1 g/dl (32.0-37.0); MEAN PLATELET VOLUME 10.2 fl (7.4-10.4); MONOCYTE # 0.3 10^3/ul (0.3-0.9); MONOCYTES % 3.7 % (0.0-11.0); NEUTROPHIL # 7.2 10^3/ul (1.6-7.5); NEUTROPHILS % 82.7 % (39.0-77.0); PLATELET COUNT 247 10^3/UL (140-415); RED BLOOD COUNT 3.01 10^6/ul (4.70-6.10); RED CELL DISTRIBUTION WIDTH 15.4 % (11.5-14.5); WHITE BLOOD COUNT 8.7 10^3/ul (4.8-10.8)
--- NOTE | 2017-03-12 07:13 | RADRPT ---
PROCEDURE: XR Chest. CLINICAL INDICATION: pna chf TECHNIQUE: Single portable view of the chest was obtained. COMPARISON: DR LARSON 03/11/2017 FINDINGS: Tracheostomy tube overlies the upper trachea. A nasogastric tube extends into the stomach. Right int ernal jugular central venous catheter tip overlies the proximal superior vena cava. Right-sided dual chamber AICD is present with leads overlying the right atrium and right ventricle. The cardiomedias tinal silhouette is enlarged. There is persistent dense opacification of the left base with silhouet ting of the hemidiaphragm. Improved aeration of the right lung is noted. IMPRESSION: 1. Satisfactory position of support lines and tubes. 2. Persistent dense opacification of the left base with silhouetting of the hemidiaphragm. 3. Improved aeration of the right lung. RPTAT: HRSR Physician Sherry Date Time Electronically viewed and signed by Physician Sherry on 03/12/2017 07:13 RR/
[2017-03-12 07:26] LABS: CALCIUM 7.7 mg/dl (8.4-10.2); CREATININE 0.78 mg/dl (0.61-1.24); MAGNESIUM 1.7 mg/dl (1.7-2.5); POTASSIUM 4.1 mmol/L (3.5-5.1)
[2017-03-12 07:54] LABS: AADO2 Arterial 485.1 mmHg (7.0-24.0); Allen Test ACCEPTAB; Arterial COHb 0.2 % (0.0-3.0); Arterial Fraction of Oxyhgb 88.6 % (93.0-99.0); Arterial HCO3 16.3 mmol/L (22.0-26.0); Arterial MetHb 0.4 % (0.0-1.5); Arterial Total Hemglobin 9.9 g/dl (12.0-18.0); MODE VENT - AC
[2017-03-12] MEDS: LEVETIRACETAM 500 MG (PMX) 100 ML IVPB SCH ×2 (09:05→20:50)
[2017-03-12] MEDS: COLLAGENASE 30 GM TUBE TOP SCH ×2 (09:05→20:50)
[2017-03-12] MEDS: FAMOTIDINE 20 MG INJ IV SCH ×2 (09:20→20:50)
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
[2017-03-12] MEDS: HEPARIN 25000 UNITS/250 ML 250 ML IV SCH (12:06)
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
[2017-03-12] MEDS ORDERED: VANCOMYCIN 1 GM in NS 250 ML IVPB SCH (13:00)
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
[2017-03-12] MEDS: CASPOFUNGIN 50 MG in SOD CHLORIDE 0.9% 250 ML IVPB SCH (18:43)
[2017-03-12] MEDS: ACETAMINOPHEN 650MG/20.3ML CUP PO PRN (20:06)
[2017-03-12] MEDS: IPRATROPIUM (HFA) 12.9 GM INHALER INH PRN (23:39)
[2017-03-12] MEDS: ALBUTEROL HFA 8 GM INHALER INH PRN (23:39)
[2017-03-13] VITALS (36 sets, daily range): BP systolic 86–111; BP diastolic 57–75; PULSE 60–71; RESP 10–22
[2017-03-13] MEDS: LORAZEPAM 2 MG INJ IV PRN (02:12)
[2017-03-13] MEDS: D5W + KCL 20 MEQ 1,000 ML IV SCH ×2 (05:00→13:00)
[2017-03-13 05:35] LABS: BASOPHILS % 0.5 % (0.0-2.0); EOSINOPHILS # 0.3 10^3/ul (0.0-0.5); EOSINOPHILS % 4.9 % (0.0-7.0); HEMATOCRIT 27.2 % (42.0-52.0); HEMOGLOBIN 8.6 g/dl (14.0-18.0); LYMPHOCYTES # 1.2 10^3/ul (0.8-2.9); LYMPHOCYTES % 20.4 % (15.0-51.0); MEAN CORPUSCULAR HEMOGLOBIN 27.6 pg (29.0-33.0); MEAN CORPUSCULAR HGB CONC 31.6 g/dl (32.0-37.0); MEAN CORPUSCULAR VOLUME 87.2 fl (82.0-101.0); MEAN PLATELET VOLUME 10.1 fl (7.4-10.4); MONOCYTE # 0.4 10^3/ul (0.3-0.9); MONOCYTES % 7.4 % (0.0-11.0); NEUTROPHIL # 3.9 10^3/ul (1.6-7.5); NEUTROPHILS % 64.5 % (39.0-77.0); PLATELET COUNT 230 10^3/UL (140-415); RED BLOOD COUNT 3.12 10^6/ul (4.70-6.10); RED CELL DISTRIBUTION WIDTH 15.9 % (11.5-14.5)
[2017-03-13 05:59] LABS: ALBUMIN 2.2 g/dl (3.3-4.9); ALBUMIN/GLOBULIN RATIO 0.64; BILIRUBIN,INDIRECT 0.1 mg/dl (0-1.1); BILIRUBIN,TOTAL 0.1 mg/dl (0.2-1.3); CALCIUM 7.8 mg/dl (8.4-10.2); CREATININE 0.69 mg/dl (0.61-1.24); POTASSIUM 4.4 mmol/L (3.5-5.1); TOTAL PROTEIN 5.6 g/dl (6.1-8.1)
[2017-03-13] MEDS: HEPARIN 25000 UNITS/250 ML 250 ML IV SCH (06:22)
[2017-03-13] MEDS: MEROPENEM 1 GM/50ML(PMX) 50 ML IVPB SCH ×3 (06:24→21:11)
[2017-03-13] MEDS: IPRATROPIUM (HFA) 12.9 GM INHALER INH PRN ×2 (08:06→17:47)
[2017-03-13] MEDS: ALBUTEROL HFA 8 GM INHALER INH PRN ×2 (08:07→17:47)
[2017-03-13 08:20] LABS: INR 1.91; PROTIME 22.1 Sec (12.2-14.2); PT RATIO 1.7
[2017-03-13 08:22] LABS: PARTIAL THROMBOPLASTIN TIME 51.3 Sec (25.0-35.0)
--- NOTE | 2017-03-13 08:30 | RADRPT ---
PROCEDURE: XR Chest. CLINICAL INDICATION: Pneumonia, congestive heart failure TECHNIQUE: Single frontal view of the chest was obtained COMPARISON: 03/12/2017 FINDINGS: Stable tracheostomy tube, nasogastric tube and right internal jugular approach central venous cathet er. Persistent left lower lobe consolidation and / or atelectasis. Stable cardiomediastinal silhouette. No acute osseous abnormality. IMPRESSION: Stable chest radiograph. No convincing interval change compared to chest radiograph from prior day. RPTAT: EE Noelle Delgado Physician Date Time Electronically viewed and signed by Physician Sandi on 03/13/2017 08:30 /
[2017-03-13] MEDS: LEVETIRACETAM 500 MG (PMX) 100 ML IVPB SCH ×2 (08:36→21:11)
[2017-03-13] MEDS: COLLAGENASE 30 GM TUBE TOP SCH ×2 (08:36→21:11)
[2017-03-13] MEDS: VANCOMYCIN HCL 250 MG/5ML POSYG PO SCH ×4 (08:36→23:40)
[2017-03-13] MEDS: FAMOTIDINE 20 MG INJ IV SCH ×2 (08:37→21:11)
[2017-03-13] MEDS ORDERED: INFLUENZA VIRUS VACCINE 0.5 ML SYG IM* ONE (12:00)
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
[2017-03-13] MEDS: CASPOFUNGIN 50 MG in SOD CHLORIDE 0.9% 250 ML IVPB SCH (16:05)
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
[2017-03-13] MEDS: ACETAMINOPHEN 650MG/20.3ML CUP PO PRN (18:31)
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
[2017-03-13] MEDS: HEPARIN 1000 UNITS/ML 10 ML INJ IV PRN (18:45)
[2017-03-14] VITALS (36 sets, daily range): BP systolic 102–147; BP diastolic 65–102; PULSE 60–78; RESP 10–22
[2017-03-14] MEDS: HEPARIN 25000 UNITS/250 ML 250 ML IV SCH (02:52)
--- NOTE | 2017-03-14 04:02 | NEURPT ---
DATE: Patient has respiratory failure, sepsis, quadriplegia. EEG done using 10-20 International electrode system with photic stimulation. Bilateral occipital hemispheric views shows delta and theta waves, low amplitude, asymmetric bilateral, 6 to 4 Hz. Some electromyogram artifacts recorded. No epileptiform discharge or seizure activity is recorded. Photic stimulation done did elicit a drive. IMPRESSION: This is abnormal electroencephalogram, showed generalized slowing consistent with a history of underlying encephalopathy toxic metabolic. No epileptiform discharge or seizure activity is recorded. Followup EEG may be needed if clinically indicated. Dictated By: DAXA LOOMIS MD NA/NTS Conf#: [id number] DID#: [id number] CC: MELINDA BASS MD;*EndCC* MTDD
[2017-03-14 06:01] LABS: AADO2 Arterial 133.3 mmHg (7.0-24.0); Allen Test ACCEPTAB; Arterial Base Excess -7.1 mmol/L (-3.0-3); Arterial COHb 0.2 % (0.0-3.0); Arterial Fraction of Oxyhgb 85.8 % (93.0-99.0); Arterial HCO3 16.6 mmol/L (22.0-26.0); Arterial MetHb 0.3 % (0.0-1.5); Arterial Total Hemglobin 10.3 g/dl (12.0-18.0); MODE VENT - AC
[2017-03-14] MEDS: D5W + KCL 20 MEQ 1,000 ML IV SCH ×2 (06:13→17:35)
[2017-03-14] MEDS: MEROPENEM 1 GM/50ML(PMX) 50 ML IVPB SCH ×3 (06:13→22:11)
[2017-03-14 07:24] LABS: BASOPHIL # 0.1 10^3/ul (0.0-0.1); BASOPHILS % 0.6 % (0.0-2.0); EOSINOPHILS # 0.6 10^3/ul (0.0-0.5); EOSINOPHILS % 6.3 % (0.0-7.0); HEMATOCRIT 27.4 % (42.0-52.0); LYMPHOCYTES # 1.8 10^3/ul (0.8-2.9); MEAN CORPUSCULAR HEMOGLOBIN 28.6 pg (29.0-33.0); MEAN CORPUSCULAR HGB CONC 32.8 g/dl (32.0-37.0); MEAN PLATELET VOLUME 10.2 fl (7.4-10.4); MONOCYTE # 0.8 10^3/ul (0.3-0.9); NEUTROPHIL # 6.1 10^3/ul (1.6-7.5); NEUTROPHILS % 64.4 % (39.0-77.0); NUCLEATED RED BLOOD CELLS% 0.2 /100WBC (0.0-0.0); PLATELET COUNT 260 10^3/UL (140-415); RED BLOOD COUNT 3.15 10^6/ul (4.70-6.10); RED CELL DISTRIBUTION WIDTH 15.8 % (11.5-14.5); WHITE BLOOD COUNT 9.5 10^3/ul (4.8-10.8)
[2017-03-14 07:43] LABS: CALCIUM 7.6 mg/dl (8.4-10.2); CREATININE 0.67 mg/dl (0.61-1.24); POTASSIUM 4.7 mmol/L (3.5-5.1)
[2017-03-14] MEDS: VANCOMYCIN HCL 250 MG/5ML POSYG PO SCH ×3 (10:01→23:26)
[2017-03-14] MEDS: LEVETIRACETAM 500 MG (PMX) 100 ML IVPB SCH ×2 (10:01→20:41)
[2017-03-14] MEDS: FAMOTIDINE 20 MG INJ IV SCH (10:01)
[2017-03-14] MEDS: COLLAGENASE 30 GM TUBE TOP SCH ×2 (10:02→20:42)
[2017-03-14] MEDS: ACETAMINOPHEN 650MG/20.3ML CUP PO PRN (10:58)
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
[2017-03-14] MEDS: HEPARIN 1000 UNITS/ML 10 ML INJ IV PRN (12:12)
--- NOTE | 2017-03-14 13:37 | CONS ---
Date/Time of Note Date/Time of Note DATE: 03/14/17 TIME: 13:33 Consult Date/Type/Reason Admit Date/Time Mar 10, 2017 at 11:38 Initial Consult Date 03/11/17 Type of Consultation: Pulm/CCM Ordering Provider: DEMETRIA GARCIA Subjective No events. On vent. Objective Vital Signs Date Time Temp Pulse Resp B/P Pulse Ox O2 Delivery O2 Flow Rate FiO2 03/14/17 11: 60 10 100 40 03/14/17 06:00 102/67 Mechanical Ventilator 03/14/17 04:00 98.1 Intake and Output 03/13/17 03/13/17 03/14/17 15:00 23:00 07:00 Intake Total 972 ml 1256.0 ml 766 ml Output Total 280 ml 480 ml 1275 ml Balance 692 ml 776.0 ml -509 ml Exam HEENT: Neck supple; no JVD; no LAD; + trach CVS: RRR, S1 and S2 CHEST: Coarse BS and L rhonchi ABD: Soft, NT, + BS EXT: + edema Results/Medications Result Diagram: 03/14/17 0649 03/14/17 0649 Results 24 hrs Laboratory Tests Test 03/13/17 17:29 03/13/17 23:35 03/14/17 01:03 03/14/17 05:00 Activated Partial Thromboplast Time 55.3 H 168.0 *H 53.0 H Blood Gas Specimen Source Blood arterial Arterial Blood Date Drawn 03/14/2017 5:40:30 AM Arterial Blood pH (Temp corrected) 7.394 Arterial Blood pCO2 (Temp correct) 27.8 L Arterial Blood pO2 (Temp corrected) 47.9 *L Arterial Blood HCO3 16.6 L Arterial Blood Base Excess -7.1 L Arterial Blood Oxygen Saturation 86.2 L Robert Test ACCEPTAB Arterial Blood Gas Puncture Site Right Radial Arterial Blood Carboxyhemoglobin 0.2 Arterial Blood Methemoglobin 0.3 Blood Gas A-a O2 Differential 133.3 H Oxyhemoglobin Percent 85.8 L Total Hemoglobin 10.3 L Blood Gas Temperature 37.0 Blood Gas Respiration Rate 10.0 Blood Gas Actual Respiration Rate 10 Blood Gas Modality VENT - AC FiO2 30.0 Blood Gas Tidal Volume 550.0 Blood Gas Low PEEP Setting 5.0 Blood Gas Inspiratory Pressure 24.0 Blood Gas Critical Value Read Back Kunal WEI R.N Blood Gas Notified Whom MM Blood Gas Notified Time 03/14/2017 6:01:07 AM Test 03/14/17 06:49 03/14/17 10:50 White Blood Count 9.5 # Red Blood Count 3.15 L Hemoglobin 9.0 L Hematocrit 27.4 L Mean Corpuscular Volume 87.0 Mean Corpuscular Hemoglobin 28.6 L Mean Corpuscular Hemoglobin Concent 32.8 Red Cell Distribution Width 15.8 H Platelet Count 260 Mean Platelet Volume 10.2 Neutrophils % 64.4 Lymphocytes % 19.0 Monocytes % 8.0 Eosinophils % 6.3 Basophils % 0.6 Nucleated Red Blood Cells % 0.2 H Neutrophils # 6.1 Lymphocytes # 1.8 Monocytes # 0.8 Eosinophils # 0.6 H Basophils # 0.1 Nucleated Red Blood Cells # 0.0 Activated Partial Thromboplast Time 54.1 H 55.3 H Sodium Level 138 Potassium Level 4.7 Chloride Level 115 H Carbon Dioxide Level 17 L Anion Gap 11 Blood Urea Nitrogen 10 Creatinine 0.67 Glucose Level 73 Calcium Level 7.6 L Medications Current Medications Ondansetron HCl (Zofran Inj) 4 mg Q6H PRN IV NAUSEA AND/OR VOMITING; Start 03/10/17 at 11:30 Acetaminophen (Tylenol Liquid) 650 mg Q6H PRN PO PAIN LEVEL 1-3 OR FEVER Last administered on 03/14/17 10:58; Admin Dose 650 MG; Start 03/10/17 at 11:30 Morphine Sulfate (morphine) 2 mg Q4H PRN IV PAIN LEVEL 7-10 Last administered on 03/11/17 06:08; Admin Dose 2 MG; Start 03/10/17 at 11:30 Famotidine 20 mg 20 mg Q12 IV Last administered on 03/14/17 10:01; Admin Dose 20 MG; Start 03/10/17 at 21:00 Caspofungin 50 mg/ Sodium Chloride 250 ml @ 250 mls/hr Q24H IVPB Last administered on 03/13/17 16:05; Admin Dose 250 MLS/HR; Start 03/11/17 at 17:00 Meropenem/Sodium Chloride (Merrem 1 Gm/50 ml (Pmx)) 50 ml @ 100 mls/hr Q8 IVPB Last administered on 03/14/17 06:13; Admin Dose 100 MLS/HR; Start 03/10/17 at 16:00 Vancomycin HCl 250 mg 250 mg Q8H PO Last administered on 03/14/17 10:01; Admin Dose 250 MG; Start 03/10/17 at 16:00 Levetiracetam (Keppra 500 Mg/ 100ml (Pmx)) 100 ml @ 400 mls/hr Q12 IVPB Last administered on 03/14/17 10:01; Admin Dose 400 MLS/HR; Start 03/10/17 at 21:00 Lorazepam 0.5 mg 0.5 mg Q4H PRN IV AGITATION/ SEIZURES Last administered on 02:12; Admin Dose 0.5 MG; Start 03/10/17 at 21:00 Potassium Chloride/Dextrose (D5W + KCl 20 Meq) 1,000 ml @ 70 mls/hr [id number] IV Last administered on 03/14/17 06:13; Admin Dose 70 MLS/HR; Start 03/11/17 at 13:00 Collagenase (Santyl) 1 applic BID TOP Last administered on 03/14/17 10:02; Admin Dose 1 APPLIC; Start 03/12/17 at 09:00 Ipratropium [place] (Atrovent Hfa) 4 puff Q4 PRN INH SHORTNESS OF BREATH Last administered on 03/13/17 17:47; Admin Dose 4 PUFF; Start 03/12/17 at 20:30 Heparin Sodium (Porcine) (Heparin (1000 Units/ml)) PRN aPTT less than 47 give 80 uni... PRN PRN IV PENDING LAB VALUE Last administered on 03/14/17 12:12; Admin Dose 3,700 UNIT; Start 03/13/17 at 18:30 Citric Acid/ Sodium Citrate (Bicitra) 30 ml TID PO ; Start 03/14/17 at 13:00 Assessment/Plan Additional Assessment/Plan IMP: 1. Ventilator-dependent respiratory failure 2. Left-sided pna and ATX 3, Quadriplegia with C-spine injury. 4. Urinary tract infection with septic shock. 5. Acute pulmonary embolus with hypoxemic respiratory failure. 6. Anemia RECS: 1. Maintain MAP > 65 mm Hg 2. Continue current vent settings. 3. Continue broad-spectrum antibiotic coverage as per ID. 4. Nasogastric tube feeding to be switched to G-tube when more stable. 5. Heparin gtt 6. Chest PT/suctioning, if no improvement in L sided atelectasis--> may benefit from a bronchoscopy 35 min cc time DAXA MARROQUIN MD Mar 14, 2017 13:36
[2017-03-14] MEDS: CITRIC ACID/SODIUM CITRATE 15 ML CUP PO SCH ×2 (15:46→20:41)
[2017-03-14] MEDS: CASPOFUNGIN 50 MG in SOD CHLORIDE 0.9% 250 ML IVPB SCH (17:23)
[2017-03-14] MEDS: FAMOTIDINE 20 MG TAB NGT SCH (20:41)
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
[2017-03-15] VITALS (24 sets, daily range): BP systolic 92–139; BP diastolic 62–84; PULSE 60–72; RESP 10–19
[2017-03-15] MEDS: IPRATROPIUM (HFA) 12.9 GM INHALER INH PRN (01:26)
[2017-03-15] MEDS: ALBUTEROL HFA 8 GM INHALER INH PRN (01:27)
[2017-03-15] MEDS: LORAZEPAM 2 MG INJ IV PRN (01:37)
[2017-03-15] MEDS: MEROPENEM 1 GM/50ML(PMX) 50 ML IVPB SCH ×2 (05:38→13:32)
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
[2017-03-15] MEDS: CITRIC ACID/SODIUM CITRATE 15 ML CUP PO SCH ×3 (08:35→21:59)
[2017-03-15] MEDS: VANCOMYCIN HCL 250 MG/5ML POSYG PO SCH ×3 (08:35→20:20)
[2017-03-15] MEDS: FAMOTIDINE 20 MG TAB NGT SCH ×2 (08:35→21:59)
[2017-03-15] MEDS: COLLAGENASE 30 GM TUBE TOP SCH ×2 (08:37→21:00)
[2017-03-15] MEDS: LEVETIRACETAM 500 MG (PMX) 100 ML IVPB SCH ×2 (09:08→22:16)
[2017-03-15] MEDS: D5W + KCL 20 MEQ 1,000 ML IV SCH (09:13)
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
[2017-03-15] MEDS: CASPOFUNGIN 50 MG in SOD CHLORIDE 0.9% 250 ML IVPB SCH (17:00)
[2017-03-15] MEDS: ACETAMINOPHEN 650MG/20.3ML CUP PO PRN (20:20)
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
[2017-03-16] VITALS (24 sets, daily range): BP systolic 95–168; BP diastolic 51–88; PULSE 60–63; RESP 10–20
[2017-03-16] MEDS: VANCOMYCIN HCL 250 MG/5ML POSYG PO SCH ×2 (00:49→08:51)
[2017-03-16] MEDS: D5W + KCL 20 MEQ 1,000 ML IV SCH ×2 (01:30→08:46)
[2017-03-16] MEDS: HEPARIN 25000 UNITS/250 ML 250 ML IV SCH (01:46)
[2017-03-16] MEDS: morphine 2 MG INJ IV PRN (02:56)
[2017-03-16 08:22] LABS: BASOPHIL # 0.1 10^3/ul (0.0-0.1); BASOPHILS % 0.7 % (0.0-2.0); EOSINOPHILS # 0.6 10^3/ul (0.0-0.5); EOSINOPHILS % 7.6 % (0.0-7.0); HEMOGLOBIN 8.5 g/dl (14.0-18.0); LYMPHOCYTES # 2.6 10^3/ul (0.8-2.9); LYMPHOCYTES % 31.8 % (15.0-51.0); MEAN CORPUSCULAR HEMOGLOBIN 28.3 pg (29.0-33.0); MEAN CORPUSCULAR HGB CONC 32.7 g/dl (32.0-37.0); MEAN CORPUSCULAR VOLUME 86.7 fl (82.0-101.0); MEAN PLATELET VOLUME 9.8 fl (7.4-10.4); MONOCYTE # 0.8 10^3/ul (0.3-0.9); NEUTROPHILS % 48.3 % (39.0-77.0); PLATELET COUNT 247 10^3/UL (140-415); RED CELL DISTRIBUTION WIDTH 15.6 % (11.5-14.5); WHITE BLOOD COUNT 8.2 10^3/ul (4.8-10.8)
[2017-03-16 08:44] LABS: CALCIUM 7.7 mg/dl (8.4-10.2); CREATININE 0.58 mg/dl (0.61-1.24); POTASSIUM 3.9 mmol/L (3.5-5.1)
[2017-03-16] MEDS: CITRIC ACID/SODIUM CITRATE 15 ML CUP PO SCH ×3 (08:46→21:46)
[2017-03-16] MEDS: LEVETIRACETAM 500 MG (PMX) 100 ML IVPB SCH (08:47)
[2017-03-16] MEDS: FAMOTIDINE 20 MG TAB NGT SCH ×2 (08:47→20:53)
[2017-03-16] MEDS: COLLAGENASE 30 GM TUBE TOP SCH ×2 (08:50→20:54)
[2017-03-16] MEDS ORDERED: INFLUENZA VIRUS VACCINE 0.5 ML SYG IM* ONE (09:00)
[2017-03-16] MEDS: ACETAMINOPHEN 650MG/20.3ML CUP PO PRN (14:44)
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
[2017-03-16] MEDS: CASPOFUNGIN 50 MG in SOD CHLORIDE 0.9% 250 ML IVPB SCH (17:27)
[2017-03-16] MEDS: ESCITALOPRAM 10 MG TAB PO SCH (17:28)
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
[2017-03-16 19:02] LABS: INR 1.77; PROTIME 20.8 Sec (12.2-14.2); PT RATIO 1.6
[2017-03-16] MEDS: ATORVASTATIN 10 MG TAB PO SCH (20:53)
[2017-03-16] MEDS: BACLOFEN 10 MG TAB PO SCH (20:53)
[2017-03-16] MEDS: GABAPENTIN 300 MG CAP PO SCH (20:53)
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
[2017-03-17] VITALS (27 sets, daily range): BP systolic 99–167; BP diastolic 68–109; PULSE 59–63; RESP 10–44
[2017-03-17] MEDS: ACETAMINOPHEN 650MG/20.3ML CUP PO PRN (00:08)
[2017-03-17] MEDS: VANCOMYCIN HCL 250 MG/5ML POSYG PO SCH ×3 (00:09→21:34)
[2017-03-17] MEDS: ALBUTEROL HFA 8 GM INHALER INH PRN (00:15)
[2017-03-17] MEDS: IPRATROPIUM (HFA) 12.9 GM INHALER INH PRN (00:15)
[2017-03-17] MEDS: morphine 2 MG INJ IV PRN ×4 (01:46→16:34)
[2017-03-17] MEDS: D5W + KCL 20 MEQ 1,000 ML IV SCH ×2 (05:15→21:34)
[2017-03-17 08:01] LABS: BASOPHIL # 0.1 10^3/ul (0.0-0.1); BASOPHILS % 0.7 % (0.0-2.0); EOSINOPHILS # 0.5 10^3/ul (0.0-0.5); HEMATOCRIT 28.3 % (42.0-52.0); HEMOGLOBIN 9.1 g/dl (14.0-18.0); LYMPHOCYTES # 2.3 10^3/ul (0.8-2.9); MEAN CORPUSCULAR HEMOGLOBIN 27.3 pg (29.0-33.0); MEAN CORPUSCULAR HGB CONC 32.2 g/dl (32.0-37.0); MEAN PLATELET VOLUME 9.9 fl (7.4-10.4); MONOCYTE # 0.7 10^3/ul (0.3-0.9); MONOCYTES % 8.4 % (0.0-11.0); NEUTROPHIL # 4.7 10^3/ul (1.6-7.5); NEUTROPHILS % 56.6 % (39.0-77.0); PLATELET COUNT 266 10^3/UL (140-415); RED BLOOD COUNT 3.33 10^6/ul (4.70-6.10); RED CELL DISTRIBUTION WIDTH 15.7 % (11.5-14.5); WHITE BLOOD COUNT 8.3 10^3/ul (4.8-10.8)
[2017-03-17 08:24] LABS: CREATININE 0.59 mg/dl (0.61-1.24)
[2017-03-17 08:44] LABS: POTASSIUM 3.8 mmol/L (3.5-5.1)
[2017-03-17] MEDS: ESCITALOPRAM 10 MG TAB PO SCH (09:00)
[2017-03-17] MEDS: BACLOFEN 10 MG TAB PO SCH ×3 (09:00→21:34)
[2017-03-17] MEDS: CITRIC ACID/SODIUM CITRATE 15 ML CUP PO SCH ×2 (09:00→21:34)
[2017-03-17] MEDS: GABAPENTIN 300 MG CAP PO SCH ×3 (09:00→21:34)
[2017-03-17] MEDS: FAMOTIDINE 20 MG TAB NGT SCH ×2 (09:00→21:34)
[2017-03-17] MEDS: COLLAGENASE 30 GM TUBE TOP SCH ×2 (09:59→21:35)
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
[2017-03-17] MEDS ORDERED: PROPOFOL 20 ML ONE (12:22)
[2017-03-17] MEDS ORDERED: FENTAnyl 50 MCG/ML VIAL ONE (12:22)
--- NOTE | 2017-03-17 12:50 | OPPN ---
Date/Time of Note Date/Time of Note DATE: 03/17/17 TIME: 12:47 Proc Note GI Procedure Date 03/17/17 Indication: other Pre-procedure Diagnosis dysphagia Post-procedure Diagnosis dysphagia Procedure Performed: Endoscopy (peg done), Other Surgeon see signature line Contract Clerk none Anesthesia Type: MAC Tourniquet Time none EBL none Transfusion required none Biopsy 1: none Grafts/Implants none Tubes/Drains peg placed Complication(s) none Disposition: other Procedure Description under mac peg inserted GUERRERO SAUCEDO MD Mar 17, 2017 12:50
[2017-03-17] MEDS ORDERED: CIPROFLOXACIN 400MG/D5W 200 ML IVPB ONE (13:00)
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
[2017-03-17] MEDS: ATORVASTATIN 10 MG TAB PO SCH (21:34)
[2017-03-17] MEDS: CASPOFUNGIN 50 MG in SOD CHLORIDE 0.9% 250 ML IVPB SCH (21:41)
[2017-03-18] VITALS (27 sets, daily range): BP systolic 80–162; BP diastolic 51–82; PULSE 59–63; RESP 10–22
[2017-03-18] MEDS: VANCOMYCIN HCL 250 MG/5ML POSYG PO SCH ×3 (02:00→15:28)
--- NOTE | 2017-03-18 03:24 | GILP ---
DATE OF PROCEDURE: PROCEDURE: Esophagogastroduodenoscopy, percutaneous endoscopic gastrostomy tube placement. PREOPERATIVE DIAGNOSIS: Patient presenting with history of difficulty in swallowing. He has anoxic brain injury status post quadriplegia, status post tracheostomy. Procedure at this time performed to create access for long-term nutritional support. POSTOPERATIVE DIAGNOSIS: Patient presenting with history of difficulty in swallowing. He has anoxi c brain injury status post quadriplegia, status post tracheostomy. Procedure at this time performed to create access for long-term nutritional support. DESCRIPTION OF PROCEDURE: After the informed written consent was obtained, the patient was asked to lie in the supine position. Intravenous anesthesia was given by anesthesiologist, Dr. Gaffney. When the patient became somnolent, Olympus video upper endoscope was introduced into the oropharynx , then into the esophagus. Esophagus, stomach and duodenum appeared normal. Scope, at this time, w as withdrawn to the level of the gastric cavity. The anterior abdominal wall was prepared with Beta dine and alcohol, 2 mL of 2% Xylocaine was infiltrated at the endoscopic illuminating site. Five mm incision was made by using the scalpel. Through this incision, trocar was inserted into the stomac h and through the trocar, a guidewire was inserted after removing the stylet. The guidewire was gra bbed with a polypectomy snare and then it was brought out through the mouth, along with endoscope. To this end of the guidewire, a #20 Microvasive G-tube was tied in a loop fashion and then it was br ought out through the abdominal wall incision. The retention bumper was placed over the G-tube clos e to the skin. Tapered end of the gastrostomy tube was cut, the adapter was placed and the procedur e was terminated. PLAN: Recommend starting G-tube feeding in a.m. Dictated By: GUERRERO DUMONT/FABIENNE Conf#: [id number] DID#: [id number] CC: MELINDA BASS MD;*EndCC*
[2017-03-18] MEDS: ACETAMINOPHEN 650MG/20.3ML CUP PO PRN (06:43)
[2017-03-18 09:01] LABS: BASOPHILS % 0.5 % (0.0-2.0); EOSINOPHILS # 0.4 10^3/ul (0.0-0.5); EOSINOPHILS % 4.6 % (0.0-7.0); HEMATOCRIT 26.9 % (42.0-52.0); HEMOGLOBIN 8.9 g/dl (14.0-18.0); LYMPHOCYTES % 25.3 % (15.0-51.0); MEAN CORPUSCULAR HEMOGLOBIN 28.3 pg (29.0-33.0); MEAN CORPUSCULAR HGB CONC 33.1 g/dl (32.0-37.0); MEAN CORPUSCULAR VOLUME 85.7 fl (82.0-101.0); MEAN PLATELET VOLUME 9.9 fl (7.4-10.4); MONOCYTE # 0.7 10^3/ul (0.3-0.9); MONOCYTES % 9.1 % (0.0-11.0); NEUTROPHIL # 4.8 10^3/ul (1.6-7.5); NEUTROPHILS % 59.5 % (39.0-77.0); NUCLEATED RED BLOOD CELLS% 0.2 /100WBC (0.0-0.0); PLATELET COUNT 226 10^3/UL (140-415); RED BLOOD COUNT 3.14 10^6/ul (4.70-6.10); RED CELL DISTRIBUTION WIDTH 15.7 % (11.5-14.5)
[2017-03-18] MEDS: D5W + KCL 20 MEQ 1,000 ML IV SCH ×2 (09:04→15:54)
[2017-03-18] MEDS: ESCITALOPRAM 10 MG TAB PO SCH (09:04)
[2017-03-18] MEDS: CITRIC ACID/SODIUM CITRATE 15 ML CUP PO SCH ×2 (09:04→21:13)
[2017-03-18] MEDS: GABAPENTIN 300 MG CAP PO SCH ×3 (09:04→21:13)
[2017-03-18] MEDS: FAMOTIDINE 20 MG TAB NGT SCH ×2 (09:04→21:13)
[2017-03-18] MEDS: BACLOFEN 10 MG TAB PO SCH ×3 (09:04→21:13)
[2017-03-18] MEDS: COLLAGENASE 30 GM TUBE TOP SCH ×2 (09:05→21:12)
[2017-03-18 09:27] LABS: CALCIUM 7.8 mg/dl (8.4-10.2); CREATININE 0.61 mg/dl (0.61-1.24); POTASSIUM 3.5 mmol/L (3.5-5.1)
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
[2017-03-18] MEDS ORDERED: POTASSIUM CHLORIDE 20 MEQ POWDER FOR ORAL SOLN GTB ONE (16:00)
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
[2017-03-18] MEDS: ATORVASTATIN 10 MG TAB PO SCH (21:13)
[2017-03-18] MEDS: APIXABAN 5 MG TABLET PO SCH (21:13)
[2017-03-19] VITALS (23 sets, daily range): BP systolic 95–136; BP diastolic 64–84; PULSE 60–72; RESP 10–27
[2017-03-19] MEDS: ACETAMINOPHEN 650MG/20.3ML CUP PO PRN ×2 (05:50→15:17)
[2017-03-19 07:39] LABS: BASOPHILS % 0.7 % (0.0-2.0); EOSINOPHILS # 0.4 10^3/ul (0.0-0.5); EOSINOPHILS % 5.9 % (0.0-7.0); HEMATOCRIT 29.6 % (42.0-52.0); HEMOGLOBIN 9.2 g/dl (14.0-18.0); LYMPHOCYTES # 2.5 10^3/ul (0.8-2.9); LYMPHOCYTES % 41.8 % (15.0-51.0); MEAN CORPUSCULAR HGB CONC 31.1 g/dl (32.0-37.0); MEAN CORPUSCULAR VOLUME 86.8 fl (82.0-101.0); MEAN PLATELET VOLUME 10.2 fl (7.4-10.4); MONOCYTE # 0.6 10^3/ul (0.3-0.9); MONOCYTES % 10.3 % (0.0-11.0); NEUTROPHIL # 2.4 10^3/ul (1.6-7.5); NEUTROPHILS % 40.1 % (39.0-77.0); PLATELET COUNT 215 10^3/UL (140-415); RED BLOOD COUNT 3.41 10^6/ul (4.70-6.10); WHITE BLOOD COUNT 5.9 10^3/ul (4.8-10.8)
[2017-03-19] MEDS: FAMOTIDINE 20 MG TAB NGT SCH ×2 (07:51→21:51)
[2017-03-19] MEDS: BACLOFEN 10 MG TAB PO SCH ×3 (07:51→21:51)
[2017-03-19] MEDS: ESCITALOPRAM 10 MG TAB PO SCH (07:51)
[2017-03-19] MEDS: GABAPENTIN 300 MG CAP PO SCH ×3 (07:51→21:50)
[2017-03-19] MEDS: CITRIC ACID/SODIUM CITRATE 15 ML CUP PO SCH ×2 (07:51→21:51)
[2017-03-19] MEDS: APIXABAN 5 MG TABLET PO SCH ×2 (07:51→21:51)
[2017-03-19] MEDS: D5W + KCL 20 MEQ 1,000 ML IV SCH (07:52)
[2017-03-19] MEDS: COLLAGENASE 30 GM TUBE TOP SCH ×2 (07:52→21:52)
[2017-03-19 08:07] LABS: CALCIUM 7.8 mg/dl (8.4-10.2); CREATININE 0.59 mg/dl (0.61-1.24); POTASSIUM 4.1 mmol/L (3.5-5.1)
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
[2017-03-19] MEDS: ATORVASTATIN 10 MG TAB PO SCH (21:51)
[2017-03-20] VITALS (24 sets, daily range): BP systolic 90–112; BP diastolic 50–81; PULSE 60–71; RESP 0–24
[2017-03-20] MEDS: D5W + KCL 20 MEQ 1,000 ML IV SCH (02:21)
[2017-03-20] MEDS: ACETAMINOPHEN 650MG/20.3ML CUP PO PRN (05:38)
[2017-03-20] MEDS: CITRIC ACID/SODIUM CITRATE 15 ML CUP PO SCH ×2 (08:31→21:13)
[2017-03-20] MEDS: APIXABAN 5 MG TABLET PO SCH ×2 (08:31→21:13)
[2017-03-20] MEDS: COLLAGENASE 30 GM TUBE TOP SCH ×2 (08:32→21:13)
[2017-03-20] MEDS: GABAPENTIN 300 MG CAP PO SCH ×3 (08:32→21:13)
[2017-03-20] MEDS: FAMOTIDINE 20 MG TAB NGT SCH ×2 (08:32→21:13)
[2017-03-20] MEDS: ESCITALOPRAM 10 MG TAB PO SCH (08:32)
[2017-03-20] MEDS: BACLOFEN 10 MG TAB PO SCH ×3 (08:32→21:00)
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
[2017-03-20] MEDS ORDERED: VITAMIN A & D 5 GM OINT PACKET TOP ONE (12:16)
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
[2017-03-20] MEDS: morphine 2 MG INJ IV PRN (19:57)
[2017-03-20] MEDS: ATORVASTATIN 10 MG TAB PO SCH (21:13)
[2017-03-21] VITALS (14 sets, daily range): BP systolic 111–126; BP diastolic 65–69; PULSE 60–63; RESP 11–21
[2017-03-21] MEDS: ACETAMINOPHEN 650MG/20.3ML CUP PO PRN (01:15)
[2017-03-21] MEDS: ALBUTEROL HFA 8 GM INHALER INH PRN (01:34)
[2017-03-21] MEDS: IPRATROPIUM (HFA) 12.9 GM INHALER INH PRN (01:34)
[2017-03-21] MEDS: D5W + KCL 20 MEQ 1,000 ML IV SCH (04:20)
[2017-03-21] MEDS: BACLOFEN 10 MG TAB PO SCH ×2 (09:23→13:45)
[2017-03-21] MEDS: FAMOTIDINE 20 MG TAB NGT SCH (09:23)
[2017-03-21] MEDS: ESCITALOPRAM 10 MG TAB PO SCH (09:23)
[2017-03-21] MEDS: APIXABAN 5 MG TABLET PO SCH (09:23)
[2017-03-21] MEDS: GABAPENTIN 300 MG CAP PO SCH ×2 (09:23→13:45)
[2017-03-21] MEDS: CITRIC ACID/SODIUM CITRATE 15 ML CUP PO SCH (09:23)
[2017-03-21] MEDS: COLLAGENASE 30 GM TUBE TOP SCH (09:23)
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
--- NOTE | 2017-03-21 11:31 | CONS ---
Date/Time of Note Date/Time of Note DATE: 03/21/17 TIME: 11:30 Consult Date/Type/Reason Admit Date/Time Mar 10, 2017 at 11:38 Initial Consult Date 03/11/17 Type of Consultation: PULM Ordering Provider: DEMETRIA GARCIA Subjective Comfortable. Objective Vital Signs Date Time Temp Pulse Resp B/P Pulse Ox O2 Delivery O2 Flow Rate FiO2 03/21/17 11:22 97.5 60 17 120/69 96 03/21/17 11:10 30 03/18/17 12:00 Nasal Cannula 2.0 Intake and Output 03/20/17 03/20/17 03/21/17 15:00 23:00 07:00 Intake Total 640 ml Output Total 1000 ml Balance -360 ml Exam PHYSICAL EXAMINATION GENERAL: Chronically ill-appearing gentleman comfortable at rest, VITAL SIGNS: see below. HEENT: Pupils equal, round, and reactive to light. Tracheostomy site clean and intact. CARDIAC: S1, S2, 1/6 systolic ejection murmur CHEST: Diminished air entry bilaterally. ABDOMEN: Mildly distended. Bowel sounds present no guarding or rebound, PEG tube in place. EXTREMITIES: No cyanosis, clubbing edema +1 NEUROLOGIC: Generalized weakness Results/Medications Result Diagram: 03/19/1761703/19/17 0618 Medications Current Medications Ondansetron HCl (Zofran Inj) 4 mg Q6H PRN IV NAUSEA AND/OR VOMITING Last administered on 03/17/17 16:43; Admin Dose 4 MG; Start 03/10/17 at 11:30 Acetaminophen (Tylenol Liquid) 650 mg Q6H PRN PO PAIN LEVEL 1-3 OR FEVER Last administered on 03/21/17 01:15; Admin Dose 650 MG; Start 03/10/17 at 11:30 Morphine Sulfate (morphine) 2 mg Q4H PRN IV PAIN LEVEL 7-10 Last administered on 03/20/17 19:57; Admin Dose 2 MG; Start 03/10/17 at 11:30 Lorazepam (Ativan) 0.5 mg Q4H PRN IV AGITATION/ SEIZURES Last administered on 03/15/17 01:37; Admin Dose 0.5 MG; Start 03/10/17 at 21:00 Collagenase (Santyl) 1 applic BID TOP Last administered on 03/21/17 09:23; Admin Dose 1 APPLIC; Start 03/12/17 at 09:00 Ipratropium [place] (Atrovent Hfa) 4 puff Q4 PRN INH SHORTNESS OF BREATH Last administered on 03/21/17 01:34; Admin Dose 4 PUFF; Start 03/12/17 at 20:30 Famotidine (Pepcid) 20 mg Q12 NGT Last administered on 03/21/17 09:23; Admin Dose 20 MG; Start 03/14/17 at 21:00 Baclofen (Lioresal) 10 mg TID PO Last administered on 03/21/17 09:23; Admin Dose 10 MG; Start 03/16/17 at 21:00 Escitalopram Oxalate (Lexapro) 5 mg DAILY PO Last administered on 03/21/17 09 :23; Admin Dose 5 MG; Start 03/16/17 at 15:00 Gabapentin (Neurontin) 300 mg TID PO Last administered on 03/21/17 09:23; Admin Dose 300 MG; Start 03/16/17 at 21:00 Atorvastatin Calcium (Lipitor) 10 mg DAILY@21 PO Last administered on 21:13; Admin Dose 10 MG; Start 03/16/17 at 21:00 Citric Acid/ Sodium Citrate (Bicitra) 30 ml BID PO Last administered on 09:23; Admin Dose 30 ML; Start 03/16/17 at 21:00 Apixaban 5 mg 5 mg BID PO Last administered on 03/21/17 09:23; Admin Dose 5 MG; Start 03/18/17 at 21:00 Potassium Chloride/Dextrose (D5W + KCl 20 Meq) 1,000 ml @ 50 mls/hr Q20H IV Last administered on 03/21/17 04:20; Admin Dose 50 MLS/HR; Start 03/18/17 at 16:00 Assessment/Plan Chief Complaint/Hosp Course IMP: 1. Ventilator-dependent respiratory failure 2. Left-sided pna and ATX 3, Quadriplegia with C-spine injury. 4. Urinary tract infection with septic shock. 5. Acute pulmonary embolus with hypoxemic respiratory failure. 6. Anemia 7. Dysphasia with chronic nasogastric tube. Status post PEG tube placement RECS: 1. Maintain MAP > 65 mm Hg 2. Continue current vent settings. 3. Continue broad-spectrum antibiotic coverage as per ID. 4. Continue G-tube feeding 5. Resume anticoagulation Discharge planning, transfer to [place]. Problems: LISY MCCOY MD, [facility] Mar 21, 2017 11:31
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
== END 2017-03-21 13:57 | DRG 870 ==
LOC: E/R 06:16 → ICU 11:38 → TEL 03-15 00:54
PROVIDERS: ADMIT Internal Medicine; ATTEND Internal Medicine
PROC: 5A1955Z Respiratory Ventilation, Greater than 96 Consecutive Hours (ICD-10-PCS; principal; 2017-03-10)
PROC: 0DH63UZ Insertion of Feeding Device into Stomach, Percutaneous Approach (ICD-10-PCS; 2017-03-17)
DX: A41.9 Sepsis, unspecified organism (principal); I26.99 Other pulmonary embolism without acute cor pulmonale; N17.0 Acute kidney failure with tubular necrosis; J96.20 Acute and chronic respiratory failure, unspecified whether with hypoxia or hypercapnia; R65.21 Severe sepsis with septic shock; J18.9 Pneumonia, unspecified organism; G92 Toxic encephalopathy; G82.50 Quadriplegia, unspecified; L89.213 Pressure ulcer of right hip, stage 3; Z99.11 Dependence on respirator [ventilator] status; E87.0 Hyperosmolality and hypernatremia; B37.49 Other urogenital candidiasis; L89.152 Pressure ulcer of sacral region, stage 2; Z93.0 Tracheostomy status; E66.9 Obesity, unspecified; Z68.36 Body mass index [BMI] 36.0-36.9, adult; R19.7 Diarrhea, unspecified; I10 Essential (primary) hypertension; F32.9 Major depressive disorder, single episode, unspecified; Z95.0 Presence of cardiac pacemaker; R13.10 Dysphagia, unspecified
CPT/HCPCS: 36415; 36600; 70450; 71010; 71275; 74177; 76937; 80048; 80053; 80202; 81001; 82803; 82962; 83605; 83735; 84100; 84145; 84484; 85025; 85610; 85730; 87040; 87075; 87081; 87086; 87400; 90686; 92610; 93005; 93970; 94002; 94003; 94640; 95819; 96365; 96366; 96367; 96375; J0692; J1644; J1953; J2060; J2185; J2270; J2405; J3010; J3370; J3475; J3480; J7030; J7050; Q9967